=== PATIENT | female | born 1960 | race Caucasian/White ===

== ENCOUNTER → 2017-11-02 10:47 | Outpatient (POV) | payer MEDICARE, SELFPAY | PROVIDERS: Family Provider Nurse Practitioner; PCP Family Medicine; Visit Provider Internal Medicine | DX: Z00.00 Encounter for general adult medical examination without abnormal findings (principal) ==

== ENCOUNTER → 2017-11-12 11:48 | Outpatient (CLI) | payer MEDICARE, SELFPAY ==
[2017-11-12 12:48] VITALS: PULSE 63; PULSE 64
[2017-11-12 13:21] VITALS: BP 128/72; PULSE 68; RESP 12; O2SAT 97
[2017-11-12 13:23] VITALS: BP 137/71; PULSE 111; RESP 18; O2SAT 90
--- NOTE | 2017-11-12 13:30 | CT_ITS ---
EXAM: CT LUNG LOW DOSE WO CONTRAST COMPARISON: No previous CT studies. This CXR 2 view January 2014. HISTORY: 1 pack per day for 37 years = 37packYear quit smoking 5 years ago nicotine dependence ========= TECHNIQUE: The exam was performed on a GE Light Speed [address] scanner using 3.0 mGy CTDI. A low dose helical CT CHEST was performed on a multi-detector scanner. All CT scans at this facility use one or more dose reduction techniques, viz.: automated exposure control; ma/kV adjustment per patient size (including targeted exams where dose is matched to indication; i.e. head) or iterative reconstruction technique. The LDCT was performed in a facility that meets the criteria for the screening program. Data regarding this exam was submitted to ACR which is an approved registry. The order for this exam indicates that it came as a result of a lung cancer screening counseling shard decision-making visit that included all the elements required of such a visit including smoking cessation. The radiologist interpreting this exam meets the CMS criteria for the LDCT lung cancer screening program. The exam is reported using the Lung-RADS classification scale and reported to the ACR registry. NOTE: This study was performed for specific purposes of lung cancer screening & is not an alternative to diagnostic chest CT. RADIATION DOSE: CTDI vol(CT dose Index-volume) = 2.9mGy DLP (Dose Length Product) = 111.9 mGy-cm FINDINGS: No suspicious lung masses or nodules. Indeterminate/Non-actionable Nodules(Category2): There are some scattered small nonspecific nodular density which can be followed. It Right lung. Moderately dense 4.3 mm nodular density RUL.axial slice 43 . Small wispy area of likely fibrotic scarring anterior RML axial slice 52. A tiny 2.5 mm density periphery of the right lung axial slice 48 Left lung. Tiny 3 mm barely evident nodule periphery of left midlung onq axial slice 59. L UL Small 3.2 mm nodular density the posterior RLL axial slice 64 Benign nodules(Category1). Dense calcified granuloma at right lung base just over 6 mm size. Axial slice 63 LUNG PARENCHYMA Emphysema: Mild centrilobular emphysematous changes. With Hyperexpansion. Airways disease: Satisfactory. Generous caliber central airways . Scattered areas of minimal wispy fibrotic changes at the periphery the lung for example towards right CP angle and medial left lung base just above diaphragm and posterior sulcus. Also anterior RUL just above minor fissure . OTHER ANATOMIC REGIONS2. No pleural mass or density Mediastinum. No significant mediastinal adenopathy. Calcified hilar nodes on right. Reflect over elements disease. Heart is normal in size with minimal calcification of coronary arteries. Uppermost abdomen. No unremarkable findings. T-spine intact minor degenerative change. . IMPRESSION: 1. Hyperexpansion withEmphysematous changes. 2. No suspicious lung mass or nodule 3. Lung RADS Category: 2 Small indeterminate more likely benign nodules. Bilaterally. Follow-up in one year recommended . RECOMMENDATIONS: 12 monthd LDCT follow-up
== END ==
PROVIDERS: Family Provider Nurse Practitioner; PCP Family Medicine; Visit Provider Nurse Practitioner Family
DX: Z87.891 Personal history of nicotine dependence (principal); Z12.2 Encounter for screening for malignant neoplasm of respiratory organs; R06.02 Shortness of breath
CPT/HCPCS: 94060; 94618; 94640; 94726; 94729

== ENCOUNTER → 2017-12-21 10:28 | Outpatient (POV) | payer MEDICARE, SELFPAY | PROVIDERS: Family Provider Nurse Practitioner; PCP Family Medicine; Visit Provider Internal Medicine | DX: Z00.00 Encounter for general adult medical examination without abnormal findings (principal) ==

== ENCOUNTER → 2018-04-19 09:30 | Outpatient (POV) | payer MEDICARE, SELFPAY | PROVIDERS: Visit Provider Internal Medicine | DX: Z00.00 Encounter for general adult medical examination without abnormal findings (principal) ==

== ENCOUNTER → 2018-10-11 13:08 | Outpatient (POV) | payer MEDICARE, SELFPAY | PROVIDERS: Visit Provider Internal Medicine | DX: Z00.00 Encounter for general adult medical examination without abnormal findings (principal) ==

== ENCOUNTER → 2018-11-16 07:41 | Outpatient (CLI) | payer MEDICARE, SELFPAY ==
--- NOTE | 2018-11-16 07:55 | CT_ITS ---
CT lung screening EXAM: CT LUNG LOW DOSE WO CONTRAST HISTORY: 37 pack-year smoking history, asymptomatic for lung cancer ITS.REASON: H/O NICOTINE DEPENDENCE ORDERING PHYSICIAN: Cezar Cavazos MD PATIENT AGE: 58 years COMPARISON: 11/12/2017 TECHNIQUE: The exam was performed on a GE Light Speed [address] scanner using 2.90 mGy CTDI. A low dose helical CT CHEST was performed on a multi-detector scanner. All CT scans at the facility use one or more dose reduction, viz: automated exposure control, ma/kV adjustment per patient size (including targeted exams where dose is matched to indication, i.e. head), or iterative reconstruction technique. The LDCT was performed in a facility that meets the criteria for the screening program. Data regarding this exam was submitted to ACR which is an approved registry. The order for this exam indicates that it came as a result of a lung cancer screening counseling shard decision-making visit that included all the elements required of such a visit including smoking cessation. The radiologist interpreting this exam meets the CMS criteria for the LDCT lung cancer screening program. The exam is reported using the Lung-RADS classification scale and reported to the ACR registry. NOTE: This study was performed for the specific purposes of lung cancer screening and is not an alternative to diagnostic chest CT. RADIATION DOSE: CTDI vol(CT dose Index-volume) = 2.90mG DLP (Dose Length Product) = 96.38 mGcm FINDINGS: There are multiple new noncalcified pulmonary nodules including a 5 mm nodule in the right upper lobe medially, 5 mm nodule right upper lobe medially, 7 mm nodule right middle lobe, 4 mm nodule right lower lobe laterally, 3 mm nodule left lower lobe, 4 mm nodule left lower lobe. Previously noted nodule in the right upper lobe is slightly smaller. There are centrilobular emphysematous changes. There are coronary artery calcifications. IMPRESSION: 1. Lung RADS Category: 4 a, suspicious with multiple new pulmonary nodules 2. Other findings: Coronary artery calcifications, centrilobular emphysema RECOMMENDATIONS: There are multiple new small pulmonary nodules which could be inflammatory/infectious or neoplastic. Does the patient have a history of primary neoplasm? If search for primary neoplasm is noncontributory, then, recommend [address] of the chest without and with contrast
== END ==
PROVIDERS: PCP Nurse Practitioner; Visit Provider Internal Medicine
DX: Z12.2 Encounter for screening for malignant neoplasm of respiratory organs (principal); Z87.891 Personal history of nicotine dependence

== ENCOUNTER → 2019-02-02 10:29 | Outpatient (CLI) | payer MEDICARE, SELFPAY ==
[2019-02-02 10:52] LABS: Basophils # 0.1 K/mm3 (0-0.2); Basophils % 0.7 % (0.1-2.0); Eosinophils # 0.4 K/mm3 (0.0-0.4); Hematocrit 40.9 % (37.0-47.0); Hemoglobin 13.5 g/dL (12.2-16.2); Lymphocytes # 1.5 K/mm3 (0.7-4.5); Lymphocytes % 17.7 % (10-50); Mean Corpuscular Hemoglobin 30.1 pg (27.0-31.2); Mean Corpuscular Volume 91.3 fl (81-99); Mean Platelet Volume 7.9 fl (7.4-10.4); Monocytes # 0.4 K/mm3 (0.1-1.0); Monocytes % 4.9 % (1.7-9.3); Neutrophils # 5.9 K/mm3 (1.8-7.8); Neutrophils % 71.8 % (37.0-80.0); Platelet Count 232 K/mm3 (142-424); Red Blood Count 4.48 M/mm3 (4.20-5.40); Red Cell Distribution Width 13.7 % (11.5-17.5); White Blood Count 8.2 K/mm3 (4.8-10.8)
[2019-02-02 11:57] LABS: Alanine Aminotransferase 18 U/L (12-78); Albumin Level 3.4 gm/dL (3.4-5.0); Albumin/Globulin Ratio 1.2 (1.1-1.8); Alkaline Phosphatase 84 U/L (46-116); Anion Gap 13.6 mEq/L (5-15); Aspartate Amino Transferase 9 U/L (15-37); Bilirubin,Total 0.4 mg/dL (0.2-1.0); Blood Urea Nitrogen 9 mg/dL (7-18); Calcium 8.7 mg/dL (8.5-10.1); Carbon Dioxide 27 mmol/L (21.0-32.0); Chloride 104 mmol/L (98-107); Creatinine,Serum 0.77 mg/dL (0.55-1.02); Estimated Glomerular Filt Rate 76 ml/min (>60); GFR (African American) 92 ML/MIN (>60); Globulin 2.9 gm/dl (1.3-3.2); Glucose 131 mg/dL (74-106); Potassium 3.6 mmoL/L (3.5-5.1); Sodium 141 mmol/L (136-145); Total Protein,Serum 6.3 gm/dL (6.4-8.2)
== END ==
PROVIDERS: Visit Provider Surgery
DX: K52.9 Noninfective gastroenteritis and colitis, unspecified (principal)
CPT/HCPCS: 36415; 80053; 85025

== ENCOUNTER → 2019-02-03 11:48 | Outpatient (CLI) | payer MEDICARE, SELFPAY ==
[2019-02-03 11:52] LABS: Adenovirus F 40/41, stool Not Detected (NotDetected); Astrovirus Not Detected (NotDetected); Campylobacter Not Detected (NotDetected); Cryptosporidium Not Detected (NotDetected); Cyclospora Cayetanesis Not Detected (NotDetected); Entamoeba histolytica Not Detected (NotDetected); Enteroaggregative E coli Not Detected (NotDetected); Enteropathogenic E coli Not Detected (NotDetected); Enterotoxigenic E coli Not Detected (NotDetected); Giardia lamblia Not Detected (NotDetected); Norovirus Not Detected (NotDetected); Plesimonas Shigalloides, PCR Not Detected (NotDetected); Rotavirus A Not Detected (NotDetected); Salmonella, PCR Not Detected (NotDetected); Sapovirus Not Detected (NotDetected); Shiga-like toxin E coli Not Detected (NotDetected); Shigella Enterovasive E coli Not Detected (NotDetected); Vibrio Cholerae Not Detected (NotDetected); Vibrio, PCR Not Detected (NotDetected); Yersinia Entercolitica, PCR Not Detected (NotDetected)
[2019-02-03 17:42] LABS: Clostridium Difficile A/B, PCR Detected (NotDetected)
== END ==
PROVIDERS: Visit Provider Surgery
DX: A04.72 Enterocolitis due to Clostridium difficile, not specified as recurrent
CPT/HCPCS: 87506

== ENCOUNTER → 2019-02-10 14:37 | Outpatient (CLI) | payer MEDICARE, SELFPAY ==
--- NOTE | 2019-02-10 14:41 | CT_ITS ---
PROCEDURE: CT CHEST WO CON CLINICAL INDICATION: MULTIPLE PULOMNARY NODULES Follow-up abnormal screening exam COMPARISON: LUNGSCREEN CT lung screening from 11/16/2018 TECHNIQUE: Axial images obtained with sagittal and coronal reformats. All CT scans at the facility use one or more dose reduction, viz: automated exposure control, ma/kV adjustment per patient size (including targeted exams where dose is matched to indication, i.e. head), or iterative reconstruction technique. FINDINGS: There is minimal thickening of the pericardium measuring up to 7 mm in thickness anteriorly. Mild coronary artery calcification noted. COPD/emphysema with pulmonary fibrotic changes. No mediastinal or hilar mass or adenopathy. There is a small cluster of nodules in the right middle lobe. There are at least 4 nodules in this region the largest of which measures 6 mm. These are unchanged.. There is a 4 mm noncalcified nodule in the left lower lobe image number 60 unchanged. 3 mm nodule left lower lobe image number 55 unchanged. No new suspicious nodules are evident. IMPRESSION: Overall stable CT appearance of the chest with multiple pulmonary nodules unchanged. No new nodules evident. Suggest [address] follow-up to confirm 1 year stability. COPD, coronary artery disease Dictated by: Hever Abad MD 02/11/2019 06:50 Electronically signed by Hever Abad MD in [place] 02/15/2019 08:36
== END ==
PROVIDERS: PCP Nurse Practitioner; Visit Provider Internal Medicine
DX: R91.8 Other nonspecific abnormal finding of lung field (principal)
CPT/HCPCS: 71250

== ENCOUNTER → 2019-02-19 10:30 | Outpatient (CLI) | payer MEDICARE, SELFPAY ==
[2019-02-20 12:16] LABS: Adenovirus F 40/41, stool Not Detected (NotDetected); Astrovirus Not Detected (NotDetected); Campylobacter Not Detected (NotDetected); Clostridium Difficile A/B, PCR Not Detected (NotDetected); Cryptosporidium Not Detected (NotDetected); Cyclospora Cayetanesis Not Detected (NotDetected); Entamoeba histolytica Not Detected (NotDetected); Enteroaggregative E coli Not Detected (NotDetected); Enteropathogenic E coli Not Detected (NotDetected); Enterotoxigenic E coli Not Detected (NotDetected); Giardia lamblia Not Detected (NotDetected); Norovirus Not Detected (NotDetected); Plesimonas Shigalloides, PCR Not Detected (NotDetected); Rotavirus A Not Detected (NotDetected); Salmonella, PCR Not Detected (NotDetected); Sapovirus Not Detected (NotDetected); Shiga-like toxin E coli Not Detected (NotDetected); Shigella Enterovasive E coli Not Detected (NotDetected); Vibrio Cholerae Not Detected (NotDetected); Vibrio, PCR Not Detected (NotDetected); Yersinia Entercolitica, PCR Not Detected (NotDetected)
== END ==
PROVIDERS: Visit Provider Surgery
DX: A04.72 Enterocolitis due to Clostridium difficile, not specified as recurrent (principal); R19.7 Diarrhea, unspecified
CPT/HCPCS: 87506

== ENCOUNTER → 2019-02-28 10:53 | Outpatient (POV) | payer MEDICARE, SELFPAY | PROVIDERS: Visit Provider Dermatology | DX: Z00.00 Encounter for general adult medical examination without abnormal findings (principal) ==

== ENCOUNTER → 2019-03-28 10:41 | Outpatient (CLI) | payer MEDICARE, SELFPAY ==
[2019-03-28 10:44] LABS: Adenovirus F 40/41, stool Not Detected (NotDetected); Astrovirus Not Detected (NotDetected); Campylobacter Not Detected (NotDetected); Cryptosporidium Not Detected (NotDetected); Cyclospora Cayetanesis Not Detected (NotDetected); Entamoeba histolytica Not Detected (NotDetected); Enteroaggregative E coli Not Detected (NotDetected); Enteropathogenic E coli Not Detected (NotDetected); Enterotoxigenic E coli Not Detected (NotDetected); Giardia lamblia Not Detected (NotDetected); Norovirus Not Detected (NotDetected); Plesimonas Shigalloides, PCR Not Detected (NotDetected); Rotavirus A Not Detected (NotDetected); Salmonella, PCR Not Detected (NotDetected); Sapovirus Not Detected (NotDetected); Shiga-like toxin E coli Not Detected (NotDetected); Shigella Enterovasive E coli Not Detected (NotDetected); Vibrio Cholerae Not Detected (NotDetected); Vibrio, PCR Not Detected (NotDetected); Yersinia Entercolitica, PCR Not Detected (NotDetected)
[2019-03-28 13:05] LABS: Clostridium Difficile A/B, PCR Detected (NotDetected)
== END ==
PROVIDERS: Visit Provider Surgery
DX: A04.72 Enterocolitis due to Clostridium difficile, not specified as recurrent (principal)
CPT/HCPCS: 87506

== ENCOUNTER → 2019-04-11 14:18 | Outpatient (CLI) | payer MEDICARE, SELFPAY ==
[2019-04-11 14:22] LABS: Adenovirus F 40/41, stool Not Detected (NotDetected); Astrovirus Not Detected (NotDetected); Campylobacter Not Detected (NotDetected); Clostridium Difficile A/B, PCR Not Detected (NotDetected); Cryptosporidium Not Detected (NotDetected); Cyclospora Cayetanesis Not Detected (NotDetected); Entamoeba histolytica Not Detected (NotDetected); Enteroaggregative E coli Not Detected (NotDetected); Enteropathogenic E coli Not Detected (NotDetected); Enterotoxigenic E coli Not Detected (NotDetected); Giardia lamblia Not Detected (NotDetected); Norovirus Not Detected (NotDetected); Plesimonas Shigalloides, PCR Not Detected (NotDetected); Rotavirus A Not Detected (NotDetected); Salmonella, PCR Not Detected (NotDetected); Sapovirus Not Detected (NotDetected); Shiga-like toxin E coli Not Detected (NotDetected); Shigella Enterovasive E coli Not Detected (NotDetected); Vibrio Cholerae Not Detected (NotDetected); Vibrio, PCR Not Detected (NotDetected); Yersinia Entercolitica, PCR Not Detected (NotDetected)
== END ==
PROVIDERS: Visit Provider Surgery
DX: A04.72 Enterocolitis due to Clostridium difficile, not specified as recurrent (principal)
CPT/HCPCS: 87506

== ENCOUNTER → 2019-04-18 12:19 | Outpatient (CLI) | payer MEDICARE, SELFPAY ==
[2019-04-19 12:19] LABS: Adenovirus F 40/41, stool Not Detected (NotDetected); Astrovirus Not Detected (NotDetected); Campylobacter Not Detected (NotDetected); Cryptosporidium Not Detected (NotDetected); Cyclospora Cayetanesis Not Detected (NotDetected); Entamoeba histolytica Not Detected (NotDetected); Enteroaggregative E coli Not Detected (NotDetected); Enteropathogenic E coli Not Detected (NotDetected); Enterotoxigenic E coli Not Detected (NotDetected); Giardia lamblia Not Detected (NotDetected); Norovirus Not Detected (NotDetected); Plesimonas Shigalloides, PCR Not Detected (NotDetected); Rotavirus A Not Detected (NotDetected); Salmonella, PCR Not Detected (NotDetected); Sapovirus Not Detected (NotDetected); Shiga-like toxin E coli Not Detected (NotDetected); Shigella Enterovasive E coli Not Detected (NotDetected); Vibrio Cholerae Not Detected (NotDetected); Vibrio, PCR Not Detected (NotDetected); Yersinia Entercolitica, PCR Not Detected (NotDetected)
[2019-04-19 22:32] LABS: Clostridium Difficile A/B, PCR Detected (NotDetected)
== END ==
PROVIDERS: Visit Provider Surgery
DX: A04.72 Enterocolitis due to Clostridium difficile, not specified as recurrent (principal)
CPT/HCPCS: 87506

== ENCOUNTER → 2019-04-19 12:57 | Outpatient (POV) | payer MEDICARE, SELFPAY | PROVIDERS: Visit Provider Surgery | DX: Z01.89 Encounter for other specified special examinations (principal) ==

== ENCOUNTER 2020-08-11 11:21 | Emergency (ER) | payer MEDICARE, SELFPAY ==
[2020-08-11 11:44] VITALS: RESP 22; TEMP 37.1; O2SAT 93; BMI 25.3
--- NOTE | 2020-08-11 12:17 | HMH.EDUTC ---
[facility] [place] Disposition Clinical Impression: COPD exacerbation Disposition: Home, Self-Care Condition on Discharge: Good Instructions: Chronic Obstructive Pulmonary Disease, DI for Chronic Obstructive Pulmonary Disease Additional Instructions: Drink plenty of fluids. Take tylenol or ibuprofen for pain or fever. Take the medications as directed. Follow up with your regular doctor. GO TO THE ER FOR ANY WORSENING SYMPTOMS Don't start the oral steroids until tomorrow, since you had the shot here today. The cough medication (promethazine dm) will make you drowsy, so don't drive or operate heavy machinery after taking it. Prescriptions: Promethazine/Dextromethorphan [Promethazine-Dm Syrup] 5 ml PO Q6HP PRN #240 syrup PRN Reason: Cough Transmission Status: Received by [facility] levoFLOXacin [Levaquin 500mg tab] 500 mg PO DAILY #7 tab Transmission Status: Received by [facility] methylPREDNISolone [Medrol] 4 mg PO DIRECTED 6 Days #21 tab.ds.pk Transmission Status: Received by [facility] Referrals: Alex Kauffman MD [Primary Care Provider] - Time of Disposition: 13:00 Medical Decision Making - Medical Records Medical records reviewed: No: I reviewed the patient's medical records. - Giovanni Inquiry Pt receiving controlled substance: No Vital Signs: 08/11/20 11:44 08/11/20 13:06 Temperature 98.7 F 98.7 F Temperature Source Oral Oral Pulse Rate 114 H Respiratory Rate 22 20 Blood Pressure 102/62 L 02 Sat by Pulse Oximetry 93 L Oxygen Delivery Method Room Air Room Air Orders (Tests/Meds): ED MEDICATIONS Discontinued Medications Generic Name Dose Route Start Last Admin Trade Name Freq PRN Reason Stop Dose Admin Ceftriaxone Sodium 1 gm 08/11/20 12:24 08/11/20 12:37 Ceftriaxone 1gm Vial IM 08/11/20 12:25 1 gm ONCE ONE Administration Protocol Lidocaine HCl 0 ml 08/11/20 12:24 08/11/20 12:37 Lidocaine 1% 5ml Pf Vial IM 08/11/20 12:25 5 ml ONCE ONE Administration Methylprednisolone Sodium Succinate 125 mg 08/11/20 12:24 08/11/20 12:37 Methylprednisolone Sod Succ 125mg Vial IM 08/11/20 12:25 125 mg ONCE ONE Administration [facility] [place] HPI - General Stated complaint: SOA achey lung pain Time Seen by Provider: 08/11/20 12:17 Mode of Arrival: Ambulatory Source of Information: Patient Limitations: No Limitations HEENT Symptoms (Recalled from RN notes): No Resp Symptoms (Recalled from RN notes): Yes Skin Symptoms (Recalled from RN notes): No MS Symptoms (Recalled from RN notes): Yes Functional Status (Recalled from RN notes): na - History of Present Illness Provider Complaint: She states that for the past 2 days she has had worsening chest congestion. She has a history of copd. - Related Data Previous Rx's Medication Instructions Recorded vancomycin 250 mg capsule 250 mg PO QID 10 Days #40 cap 03/28/19 estradiol 1 mg tablet 1 mg PO DAILY #30 tab 04/23/20 medroxyprogesterone 2.5 mg tablet 2.5 mg PO DAILY #90 tab 04/23/20 Promethazine/Dextromethorphan 5 ml PO Q6HP PRN #240 syrup 08/11/20 [Promethazine-Dm Syrup] levoFLOXacin [Levaquin 500mg 500 mg PO DAILY #7 tab 08/11/20 tab] methylPREDNISolone [Medrol] 4 mg PO DIRECTED 6 Days #21 08/11/20 tab.ds.pk Allergies Allergy/AdvReac Type Severity Reaction Status Date / Time No Known Allergies Allergy Verified 05/13/17 11:40 - Worker's Comp Is this a Worker's Comp case?: No [facility] History - Hepatitis A Screen Drug use history?: No High risk sexual behaviors?: No History of sexually transmitted infection?: No Currently employed?: No Childcare worker?: No Do you have indoor plumbing?: Yes Do you have electricity?: Yes Attestation statement:: This patient has been screened for Hepatitis A risk factors. I have reviewed the patient's past medical history: Yes ROS Obtained: Yes All systems reviewed & no additional complaints - Constit
[2020-08-11 13:06] VITALS: BP 102/62; PULSE 114; RESP 20; TEMP 37.1; O2SAT 94
== END 2020-08-11 13:08 | disposition home or self-care (01) ==
PROVIDERS: Emergency Provider Nurse Practitioner Family; PCP Family Medicine
DX: J44.1 Chronic obstructive pulmonary disease with (acute) exacerbation (principal); Z20.822 Contact with and (suspected) exposure to COVID-19
CPT/HCPCS: G0463; 99202; U0003

== ENCOUNTER → 2020-10-17 10:16 | Outpatient (CLI) | payer MEDICARE, SELFPAY ==
--- NOTE | 2020-10-17 10:16 | MM_ITS ---
PROCEDURE: MM DIG SCREENING MAMM BI W/CAD Digital Breast Tomosynthesis Included CLINICAL INDICATION: Routine Screening Mammogram COMPARISON: MG DIGMAMMS MAMMOGRAM SCREEN-CHAIRMAN & CHIEF EXECUTIVE OFFICER N/C from 05/09/2004 MG DIGMAMMS MAMMOGRAM SCREEN-CHAIRMAN & CHIEF EXECUTIVE OFFICER N/C from 09/29/2006 MG DMSB DIGITAL MAMM-SCREEN BILATERAL from 03/19/2010 TECHNIQUE: Standard CC and MLO images and 3D Tomosynthesis was obtained. R2 CAD reviewed. FINDINGS: Breast parenchyma is heterogeneously dense which may lower the sensitivity of mammography. No new dominant mass. No suspicious type microcalcifications or indirect evidence of malignancy. A few benign-appearing calcifications noted bilaterally. IMPRESSION: Benign bilateral digital screening mammograms. BI-RAD Category: 2 Benign Finding FOLLOW-UP: 1 YR 1 Year Follow-up (A letter has been sent to the patient regarding results of the study.) Dictated by: Cezar Barnes MD 10/18/2020 08:32 Cezar Barnes MD in [place] 10/18/2020 08:32
--- NOTE | 2020-10-17 10:16 | US_ITS ---
PROCEDURE: US TRANSVAGINAL CLINICAL INDICATION: Heavy Bleeding/Post menopausal COMPARISON: No exams were available for comparison FINDINGS: UTERUS: x 3cmx 3cm with a combined endometrial thickness of 6mm LEFT OVARY: [id number] with a volume of 1.2ml. RIGHT OVARY: 2cmx [id number] with a volume of 0.8ml. Several small cervical nabothian cysts, the largest measuring about 7 mm. Mildly thickened endometrium of 7 mm may represent hyperplasia or polyps but tumor cannot be entirely excluded. Small 1 cm anterior uterine fibroid. No free fluid in the posterior cul-de-sac or pelvis. IMPRESSION: Mildly thickened endometrium of 7 mm may represent hyperplasia or polyp a tumor cannot be entirely excluded. Several small cervical nabothian cyst Small 1 cm anterior uterine fibroid. Dictated by: Cezar Barnes MD 10/17/2020 13:27 Cezar Barnes MD in [place] 10/17/2020 13:27
== END ==
PROVIDERS: PCP Family Medicine; Visit Provider Nurse Practitioner Obstetrics & Gynecology
DX: Z12.31 Encounter for screening mammogram for malignant neoplasm of breast; N95.0 Postmenopausal bleeding
CPT/HCPCS: 76830; 77063; 77067

== ENCOUNTER 2023-10-07 15:06 | Outpatient (CLI) | payer MEDICARE, SELFPAY ==
--- NOTE | 2023-10-07 15:07 | CT_ITS ---
FINAL REPORT TECHNIQUE: Thin section axial CT images with coronal and sagittal reformats were performed through the neck. This study was performed with techniques to keep radiation doses as low as reasonably achievable (ALARA). Individualized dose reduction techniques using automated exposure control or adjustment of mA and/or kV according to the patient's size were employed. CLINICAL HISTORY: lump on neck--left side marked with a bb COMPARISON: None FINDINGS: CT NECK SOFT TISSUES WITHOUT CONTRAST: A marker was placed in the left mid neck where the patient states a palpable mass is present. No evidence of mass, adenopathy, or fluid collection is noted. The marker overlies the left submandibular gland. The nasopharynx, oropharynx, and larynx appear unremarkable. Degenerative change is present in the mid and lower cervical spine. In the lung apices, moderate changes of emphysema are present along with mild scarring. IMPRESSION: Marker overlies the left submandibular gland, without evidence of mass, adenopathy, or fluid collection. Degenerative change is present in the mid and lower cervical spine. Reviewed, Interpreted and Dictated by Hong Pace III, MD Transcribed by Ines Rios Authenticated and [facility]
== END 2023-10-07 23:59 | disposition home or self-care (01) ==
LOC: RAD 15:06
PROVIDERS: PCP Nurse Practitioner; Visit Provider Nurse Practitioner
DX: R22.1 Localized swelling, mass and lump, neck (principal)
CPT/HCPCS: 70490

== ENCOUNTER 2023-12-13 12:39 | Outpatient (CLI) | payer MEDICARE, SELFPAY ==
--- NOTE | 2023-12-13 12:41 | MM_ITS ---
PROCEDURE INFORMATION: Exam: MG Bilateral Screening 3D Mammography Exam date and time: 12/13/2023 12:46 PM Age: 63 years old Clinical indication: Screening examination TECHNIQUE: Imaging protocol: Bilateral Screening tomosynthesis and 2D mammography including computer-aided detection (CAD) when performed. COMPARISON: 1. MG MM DIG SCREENING MAMM BI W/CAD 10/17/2020 10:50 AM 2. MG DMSB DIGITAL MAMM-SCREEN BILATERAL 03/19/2010 3:05 PM FINDINGS: MAMMOGRAPHY: Breast composition: The breasts are heterogeneously dense, which may obscure small masses. Mass: None. Architectural distortion: None. Calcifications: No suspicious calcifications. Asymmetric density: None. Skin thickening: None. Axillary adenopathy: None. IMPRESSION: No mammographic evidence of malignancy. Annual screening is recommended unless otherwise clinically indicated. ASSESSMENT: BI-RADS Category 1: Negative
== END 2023-12-13 23:59 | disposition home or self-care (01) ==
LOC: RAD 12:39
PROVIDERS: PCP Nurse Practitioner; Visit Provider Nurse Practitioner
DX: Z12.31 Encounter for screening mammogram for malignant neoplasm of breast (principal)
CPT/HCPCS: 77063; 77067

== ENCOUNTER 2024-05-30 08:25 | Day surgery (SDC) | payer MEDICARE, SELFPAY ==
[2024-05-26 10:41] VITALS: BMI 22.0
[2024-05-30] MEDS: CYCLOPENTOLATE 2% OPHTH SOLN 2ML BOTTLE OP ×3 (09:05→09:15)
[2024-05-30] MEDS: PHENYLEPHRINE 2.5% OPHTH SOLN 2ML OP ×3 (09:05→09:15)
[2024-05-30] MEDS: TETRACAINE 0.5% OPTH SOL 15ML OP ×3 (09:05→09:15)
[2024-05-30 09:11] VITALS: BP 148/57; PULSE 73; RESP 16; TEMP 36.4; O2SAT 97
[2024-05-30] MEDS: SODIUM CHLORIDE 0.9% 10ML FLUSH SYRINGE 10 ML IV (09:19)
[2024-05-30 10:22] VITALS: BP 147/67; PULSE 67; RESP 18; O2SAT 98
[2024-05-30] MEDS: LIDOCAINE 1% PF 2ML AMPULE 2 ML IJ (10:22)
[2024-05-30] MEDS: TIMOLOL 0.5% OPTH SOLN 5ML OP (10:22)
[2024-05-30] MEDS: TOBRAMYCIN/DEX OPTH SUSP 2.5ML OP (10:22)
[2024-05-30] MEDS: MIDAZOLAM 2MG/2ML VIAL 1 MG IV (10:22)
[2024-05-30 10:27] VITALS: BP 131/61; PULSE 68; RESP 18; O2SAT 98
[2024-05-30 10:32] VITALS: BP 125/59; PULSE 68; RESP 18; O2SAT 97
[2024-05-30 10:37] VITALS: BP 139/61; PULSE 68; RESP 18; O2SAT 97
[2024-05-30 10:40] VITALS: BP 135/70; PULSE 70; RESP 18; TEMP 36.5; O2SAT 93
--- NOTE | 2024-05-30 11:50 | P.PCN_ITS ---
[facility] Procedure Note Date: 05/30/24 Time: 11:50 Procedure Note:: Preoperative Diagnosis: Cataract combined NS Cortical Complex [Left] Eye Postop diagnosis: same Operation: Microscopic phacoemulsification with intraocular lens implant [Left] Eye Specimen: None Blood Loss: None The patient was examined in the office with a complaint of poor vision in the [left] eye. The patient reports that this interferes with ADLs such as reading, watching TV and/or driving or the vision is like looking through a foggy haze and is very troubling. The patient was examined and found to have a visually significant cataract with best corrected vision of [20/400] by refraction and/or glare testing. Treatment options, risks and benefits were explained and the patient elected to have cataract surgery in an attempt to improve their vision. The patient had the eye anesthetized with topical tetracaine, the eye ways prepped and draped in the usual fashion for cataract surgery. A paracentesis and a temporal keratotomy were made. 0.2cc of 1% lidocaine PF was placed into the anterior chamber. And aqueous/viscoelastic exchange was done and a 360 degree capsulorexis was performed. Through hydrodissection and delineation with BSS on a cannula was done. The lens nucleus was phecoemulsified with CDE of [6.94]. Residual cortical material was removed using automated I&A The capsular bag was deepened with viscoelastica and a PCIOL was placed in the capsular bag with good centration and stability. Residual viscoelastic was removed using automated I&A. The keratotomy incision was hydrated with BSS on a cannula. The wound were checked and found to be water tight. IOP was checked digitally and adjusted as needed so as not to be too high. 1 drop of timolol 0.5%, ofloxacin, prednisolone acetate and ketorolac was instilled and eye shield taped over the eye. The patient was taken to recovery in good condition and will be seen postoperatively.
== END 2024-05-30 10:46 | disposition home or self-care (01) ==
PROVIDERS: PCP Nurse Practitioner; Visit Provider Ophthalmology
PROC: (CPT 66984; principal; 2024-05-30 12:00)
DX: H25.012 Cortical age-related cataract, left eye (principal)
CPT/HCPCS: 66984; J2250; V2632

== ENCOUNTER 2024-12-03 01:24 | Observation (INO) | payer MEDICARE, SELFPAY ==
--- NOTE | 2024-12-02 01:30 | ECG_ITS ---
APPROVED REPORT Exam: Resting ECG HR:102 bpm ECG Measurements Heart Rate 102 AXES VT 156 P 92 QRSd 85 QRS 90 QT 317 T 89 QTc 376 Conclusion SINUS TACHYCARDIA POSSIBLE RIGHT ATRIAL ENLARGEMENT [0.25mV P-WAVE] MINIMAL ST DEPRESSION [0.025+ mV ST DEPRESSION] No STEMI Electronically signed by : YULISSA SIBLEY, 12/03/2024 07:05:03
[2024-12-03] VITALS (18 sets, daily range): BP systolic 100–155; BP diastolic 57–84; PULSE 80–112; RESP 13–24; TEMP 36.4–36.9; O2SAT 87–99; BMI 22.3; BMI 19.2
--- NOTE | 2024-12-03 01:26 | XR_ITS ---
PROCEDURE INFORMATION: Exam: XR Chest Exam date and time: 12/03/2024 2:26 AM Age: 64 years old Clinical indication: Shortness of breath; Additional info: SOA copd TECHNIQUE: Imaging protocol: Radiologic exam of the chest. Views: 1 view. COMPARISON: CT ANGIO CHEST PE PROTOCOL 12/03/2024 2:12 AM FINDINGS: Lungs: The lungs are hyperinflated. No focal consolidation. Pleural spaces: No pneumothorax or pleural effusion. Heart/Mediastinum: The cardiomediastinal silhouette has normal size and contour. Bones/joints: No displaced fracture. Intraperitoneal space: The visualized abdomen is unremarkable. IMPRESSION: 1. No acute cardiopulmonary disease. 2. Other findings as above.
--- NOTE | 2024-12-03 01:26 | CT_ITS ---
PROCEDURE INFORMATION: Exam: CTA Chest With Contrast Exam date and time: 12/03/2024 2:12 AM Age: 64 years old Clinical indication: Shortness of breath and tachypnea; Additional info: ERNESTINE padron TECHNIQUE: Imaging protocol: Computed tomographic angiography of the chest with contrast. Exam focused on the arteries. 3D rendering (Not supervised by radiologist): MIP and/or 3D reconstructed images were created by the technologist. Radiation optimization: All CT scans at this facility use at least one of these dose optimization techniques: automated exposure control; mA and/or kV adjustment per patient size (includes targeted exams where dose is matched to clinical indication); or iterative reconstruction. Contrast material: ISOVUE; Contrast volume: 75 ml; Contrast route: INTRAVENOUS (IV); COMPARISON: CT ANGIO CHEST PE PROTOCOL 12/03/2024 2:12 AM FINDINGS: Pulmonary arteries: No pulmonary emboli. Aorta: No aortic aneurysm. No aortic dissection. Thyroid: The thyroid gland is normal. Lungs: Centrilobular emphysema. Multiple pulmonary nodules, largest measuring 6 mm in the right middle lobe. Pulmonary granulomas. Pleural spaces: No pneumothorax. No pleural effusion. Heart: No cardiomegaly. No pericardial effusion. Lymph nodes: No enlarged lymph nodes. Liver: The liver appears enlarged. Spleen: Splenic granulomas. Kidneys: 1.2 cm hypodensity within the superior pole the right kidney, measures greater than expected for a simple cyst. Bones/joints: Multilevel degenerative type changes of the spine. No acute osseous abnormality. Soft tissues: Unremarkable. IMPRESSION: 1. No pulmonary embolism. 2. [id number] emphysema. 3. Multiple pulmonary nodules, largest measuring 6 mm. As per Fleischner Society guidelines for follow-up and management of multiple pulmonary nodules between 6 and 8 mm:For patients at low risk (minimal or absent history of smoking and of other known risk factors), recommend follow-up chest CT at 3-6 months, then consider followup at 18 - 24 months.For patients at high risk (history of smoking or of other known risk factors), recommend initial follow-up chest CT at 3-6 months, then at 18-24 months. 4. Indeterminate 1.2 cm hypodensity superior pole the right kidney recommend further evaluation with nonemergent multiphase MRI for complete characterization. 5. Other findings as above. COMMENTS: 1. The presence of pulmonary emphysema on CT is an independent risk factor for lung cancer. In the absence of a history or active diagnosis of lung cancer, it is recommended that this patient with emphysema be evaluated for enrollment in a low dose CT lung cancer screening program. 2. Consistent with the [employer]'s Incidental Findings Committee white paper (J Am Jacqui Radiol 2018): Any incidental renal lesion less than 1 cm or classified as too small to characterize, or any incidental cystic renal lesion characterized as simple-appearing, is likely benign. No follow-up imaging is recommended for these lesions per consensus recommendations based on imaging criteria.
[2024-12-03 01:36] LABS: Hematocrit 46.4 % (37.0-47.0); Hemoglobin 15.3 g/dL (12.2-16.2); Immature Granulocytes % 0.2 %; Mean Corpuscular HGB Conc 33.0 g/dL (31.8-35.4); Mean Corpuscular Hemoglobin 29.1 pg (27.0-31.2); Mean Corpuscular Volume 88.4 fl (81-99); Nucleated Red Blood Cells % 0 %; Platelet Count 243 K/mm3 (142-424); Red Blood Count 5.25 M/mm3 (4.20-5.40); Red Cell Distribution Width-SD 41.6 fL; White Blood Count 9.3 K/mm3 (4.8-10.8)
[2024-12-03 01:41] LABS: Alanine Aminotransferase 21 U/L (12-78); Albumin Level 4.8 g/dl (3.5-5.0); Albumin/Globulin Ratio 1.8 (1.1-1.8); Alkaline Phosphatase 104 U/L (38-126); Anion Gap 10.9 mEq/L (5-15); Aspartate Amino Transferase 37 U/L (14-36); Bilirubin,Total 0.6 mg/dl (0.2-1.3); Blood Urea Nitrogen 7 mg/dl (7-17); Calcium 10.1 mg/dl (8.4-10.2); Carbon Dioxide 29 mmol/L (22.0-30.0); Chloride 103 mmol/L (98-107); Creatinine Clearance Estimated 52 mL/min (50-200); Creatinine,Serum 0.70 mg/dl (0.52-1.04); Estimated Glomerular Filt Rate 84 ml/min (>60); GFR (African American) 101 ML/MIN (>60); Globulin 2.7 g/dL (1.3-3.2); Glucose 123 mg/dl (74-100); Potassium 3.9 mmoL/L (3.5-5.1); Sodium 139 mmol/L (136-145); Total Protein,Serum 7.5 g/dl (6.3-8.2)
[2024-12-03 01:43] LABS: INR 0.99 (0.9-1.1); Prothrombin Time 11.0 seconds (10.1-12.5)
[2024-12-03] MEDS: ASPIRIN 81MG CHEWABLE TABLET 324 MG PO (01:43)
[2024-12-03] MEDS: METHYLPREDNISOLONE SOD SUCC 125MG VIAL 125 MG IV (01:45)
--- NOTE | 2024-12-03 01:51 | ED_ITS ---
Discharge Plan Disposition Patient Disposition: Admitted Condition: Fair Prescriptions Prescriptions: No Action Stiolto Respimat 2.5-2.5 mcg/actuation mist 2.5 inh INHALATION NEEDED PRN (Reason: sob) atorvastatin 10 mg tablet 10 mg PO DAILY levothyroxine 50 mcg tablet 50 mcg PO DAILY sertraline 25 mg tablet 25 mg PO DAILY ipratropium-albuterol 0.5 mg-3 mg(2.5 mg base)/3 mL solution for nebulization 3 ml INHALATION DAILY PRN (Reason: Shortness Of Breath Or Wheezing) Referrals Follow up/Referrals: Lizette Gallegos APRN [Primary Care Provider, Medical] - See instructions Clinical Impressions Clinical Impression: Acute respiratory failure with hypoxia and hypercarbia, COPD exacerbation Print Language Print Language: Greek Discharge ED Provider: Chastity Nava General Chief Complaint: Shortness of Breath/Dyspnea Stated Complaint: SOA Time Seen by Provider: 12/03/24 01:25 Mode of Arrival: Wheelchair Source of Information: Patient and Relative Description of Symptoms (Recalled from ER Triage Doc. by RN): Patient to ED with complaints of increased SOA in past 24 hours. Patient not been feeling well x1week, visited PCP 2 days ago, dx with bronchitis and prescribed abx which she states are not helping. Patient 88% upon assessment on room air, placed on 2L at this time. Inspiratory and expiratory wheezing noted on auscultation. History of Present Illness HPI narrative: 64-year-old female presents to the ER complaining of increasing shortness of breath. Patient states she has been feeling under the weather for many days, she visited her PCP 2 days ago for shortness of breath and was diagnosed with bronchitis and prescribed antibiotics (azithromycin). She states she has not been having a cough, denies any chest pain. Patient does not have nasal cannula support at home but arrived 88% on room air, placed on nasal cannula upon arrival. Patient has shortness of breath despite reporting using her rescue inhaler and nebulizer treatments at home. She states she has an allergy to corticosteroids stating she feels hot and gets red but denies any hives, difficulty breathing, vomiting, anaphylaxis, or angioedema. She is not taking the prednisone that was prescribed to her by her PCP. She states her PCP did not do a chest x-ray and patient has not had fever or other infectious symptoms. No abdominal complaints. No headache or dizziness. No other complaints or concerns. Related Data Home Medications ?Medication ?Instructions ?Recorded ?Confirmed tiotropium 2.5 mcg-olodaterol 2.5 2.5 inh inhalation A S NEEDED PRN 10/11/20 12/03/24 mcg/actuation mist for inhalation sob (Stiolto Respimat) atorvastatin 10 mg tablet 10 mg PO DAILY 09/22/2307/25 levothyroxine 50 mcg tablet 50 mcg PO DAILY 09/22/23 0 12/03/24 sertraline 25 mg tablet 25 mg PO DAILY 09/22/2307/25 ipratropium 0.5 mg-albuterol 3 mg 3 ml inhalation MARINA Y PRN 12/03/24 12/03/24 (2.5 mg base)/3 mL nebulization Shortness Of Breath Or Wheezing soln Allergies Allergy/AdvReac Type Severity Reaction Status Date / Time Corticosteroids AdvReac Intermediate MAKES Verified 05/30/24 09:10 (Glucocorticoids) PATIENT RED AND FEEL HOT. [facility] Disclaimer: The information contained in this section may have been updated after the patient was seen, as this information can be updated by other users. Medical History (Updated 12/03/24 @ 02:48 by Chastity Nava MD) GERD (gastroesophageal reflux disease) Hypothyroidism COPD (chronic obstructive pulmonary disease) Lump on neck Surgical History History of thyroid surgery Hx of section Family History Sister Cancer Brother Cancer Heart disease Mother Heart disease Diabetes Social History Smoking Status: Former smoker alcohol intake: never current occupational status: other Travel in the last 8 weeks?: None Have you lived/traveled outside US in past 30 days?: No Contact w/someone who lives/traveled outside US past 30 days?: No Exposure to someone with infectious disease in past 14 days?: No Do you have a fever (greater than 100.4 F or 38 C)?: No Have you tested positive for COVID-19?: No Exposed to someone with COVID-19 in past 14 days?: No Do you have a sore throat?: No Do you have a cough?: No Do you have any weakness?: No Do you have any diarrhea?: No Are you experiencing any unusual bleeding?: No Do you have any muscle aches/pain?: No Do you have any abdominal pain?: No Are you experiencing loss of taste or smell?: No Other Medical History Have you received the Pneumonia Vaccine: Yes ROS Obtained: Yes Systems reviewed as appropriate & no additional complaints except as documented Per HPI Physical Exam General General appearance: alert and in no apparent distress Head Head exam: atraumatic and normocephalic Eye Eye exam: Present PERRL and EOMI ENT ENT exam: Present mucous membranes moist Neck Neck exam: Present normal inspection and full ROM Chest Chest inspection: Present symmetric chest wall rise Respiratory Respiratory exam: Present respiratory distress (Tripoding, diminished throughout, 88% on room air on arrival), wheezes (Very faint wheezing throughout) and accessory muscle use; Absent stridor Cardiovascular Cardiovascular exam: Present normal rhythm and tachycardia Abdominal Exam Abdominal exam: Present soft; Absent distention or tenderness Extremities Exam Extremities exam: Present full ROM and normal capillary refill; Absent tenderness, edema, joint swelling or calf tenderness Neurological Exam Neurological exam: Present alert and oriented X3; Absent motor sensory deficit Psychiatric Psychiatric exam: Present normal affect and normal mood Skin Skin exam: Present warm and dry HEART Score HEART Score HEART Score assessment performed?: Yes History (anamnesis): Slightly suspicious ECG: Non-specific disturbance Age: >65 years Risk factors: 1-2 risk factors Troponin: </= normal limit HEART Score: 4 Critical Care Critical Care Time Critical Care Time: Yes Attestation: On 12/03/24, the high probability of a clinically significant, sudden or life threatening deterioration of the following system(s) (respiratory) required my full and direct attention, intervention and personal management. The time I documented below is in addition to time spent performing reported procedures but includes the following listed in this critical care notation. Total Time Total Critical Care Time: 35 Medical Decision Making Medical Records Medical records reviewed: Yes I reviewed the patient's medical records. Giovanni Inquiry Pt receiving controlled substance: No Vital Signs Vital Signs: 12/03/24 01:33 Temperature 98.2 F Temperature Source Oral Pulse Rate [Right] 108 H Respiratory Rate 17 Blood Pressure [Right Arm] 155/84 H Blood Pressure Mean [Right Arm] 107 Blood Pressure Source [Right Arm] Automatic Cuff Blood Pressure Position [Right Arm] Sitting 02 Sat by Pulse Oximetry 87 L Oxygen Delivery Method Room Air Lab Data Labs: Lab Results 12/03/24 01:23: WBC 9.3, RBC 5.25, Hgb 15.3, Hct 46.4, MCV 88.4, MCH 29.1, MCHC 33.0, RDW 12.9, Plt Count 243, MPV 10.8 H, Neut % (Auto) 51.2, Lymph % (Auto) 30.6, [place] % (Auto) 6.1, Eos % (Auto) 10.9, Baso % (Auto) 1.0, Neut # (Auto) 4.8, Lymph # (Auto) 2.9, [place] # (Auto) 0.6, Eos # (Auto) 1.0 H, Baso # (Auto) 0.1, PT 11.0, INR 0.99, Sodium 139, Potassium 3.9, Chloride 103, Carbon Dioxide 29, Anion Gap 10.9, BUN 7, Creatinine 0.70, Estimated Creat Clear 52, Estimated GFR 84, Est GFR ( Amer) 101, Glucose 123 H, Calcium 10.1, Total Bilirubin 0.6, AST 37 H, ALT 21, Alkaline Phosphatase 104, Troponin I < 0.01, NT-Pro-B Natriuret Pep 37.8, Total Protein 7.5, Albumin 4.8, Globulin 2.7, Albumin/Globulin Ratio 1.8 12/03/24 01:57: VBG pH 7.27 L, VBG pCO2 60.2 H, VBG pO2 37.2, VBG HCO3 27.0, VBG Total CO2 28.9 H, VBG O2 Saturation 63.7, VBG Base Excess -1.4, VBG Lactic Acid 0.9 12/03/24 01:23 12/03/24 01:23 Response Orders (Tests/Meds): ED MEDICATIONS Discontinued Medications Generic Name Dose Route Start Last Admin Trade Name Freq PRN Reason Stop Dose Admin Albuterol Sulfate 20 mg 12/03/24 02:07 12/03/24 02:14 Albuterol 0.083% 2.5 Mg/3 Ml Neb IH 12/03/24 02:08 20 mg ONCE ONE Administration Albuterol/Ipratropium 9 ml 12/03/24 01:25 12/03/24 02:13 Ipratropium/Albuterol 3 Ml Neb IH 12/03/24 01:26 9 ml ONCE ONE Administration Aspirin 324 mg 12/03/24 01:26 12/03/24 01:43 Aspirin 81mg Chewable Tablet PO 12/03/24 01:27 324 mg ONCE ONE Administration Iopamidol 80 ml 12/03/24 02:10 12/03/24 02:11 Iopamidol-370 (76%);100ml Bottle IV 12/03/24 02:11 80 ml ONCE ONE Administration Methylprednisolone Sodium Succinate 125 mg 12/03/24 01:27 12/03/24 01:45 Methylprednisolone Sod Succ 125mg Vial IV 12/03/24 01:28 125 mg ONCE ONE Administration Midazolam HCl 1 mg 12/03/24 02:42 12/03/24 02:46 Midazolam 2mg/2ml Vial IV 12/03/24 02:43 1 mg ONCE ONE Administration Sodium Chloride 50 ml 12/03/24 02:10 12/03/24 02:11 0.9 % Sodium Chloride 50 Ml Vial IV 12/03/24 02:11 50 ml ONCE ONE Administration Sodium Chloride 10 ml 12/03/24 02:10 12/03/24 02:11 Sodium Chloride 0.9% 10ml Syr (Rad Only) IV 12/03/24 02:11 10 ml ONCE ONE Administration ORDERS Category Date Time Status CT angio chest PE protocol Stat Cat Scan 12/03/24 01:26 Taken XR chest portable Stat Exams 12/03/24 01:26 Taken Complete Blood Count Auto Diff Stat Lab 12/03/24 01:23 Completed Comprehensive Metabolic Panel Stat Lab 12/03/24 01:23 Completed Full Resp Panel w/COVID ([facility]) Routine Lab 12/03/24 02:45 Ordered HIV Combo Stat Lab 12/03/24 01:23 Received Hepatitis C Ab Qual. W/ RFX Stat Lab 12/03/24 01:23 Received NT Pro Brain Natriuretic Pep. Stat Lab 12/03/24 01:23 Completed Prothrombin Time INR Stat Lab 12/03/24 01:23 Completed Troponin I Q3H Lab 12/03/24 04:30 Ordered Troponin I Q3H Lab 12/03/24 07:30 Ordered Troponin I Stat Lab 12/03/24 01:23 Completed Venous Blood Gas Stat RT 12/03/24 01:57 Completed MDM Narrative Medical Decision Narrative: In summary, this 64-year-old female with history of COPD presents to the emergency department today with shortness of. On initial evaluation patient is tachycardic but otherwise hemodynamically stable, afebrile, hypoxic on arrival but placed on nasal cannula and improving, patient has diminished breath sounds throughout with expiratory wheezing, she sounds extremely tight auscultation of the lungs. She is tripoding and does have accessory muscle use, she has no peripheral edema, no swelling in the legs or tenderness of the calves, abdominal exam benign, remainder of exam benign. Differential diagnosis includes but is not limited to COPD exacerbation, pneumonia, ACS, PE, electrolyte abnormality, among others. Based on these concerns, I ordered cardiac workup, serum labs, CT imaging. Immediately after arrival patient was started on DuoNebs. I also ordered Solu- Medrol for her after discussing her previous reactions to steroids. I believe it is very important for her to get steroids for the anti-inflammatory treatment at this time despite her adverse reactions previously since they do not sound like allergy. ECG personally to read demonstrate sinus tachycardia, rate 102, normal axis, normal ME and QTc, no STEMI Labs personally reviewed demonstrate VBG with respiratory acidosis. Hypercarbia present. VBG lactic normal at 0.94. No leukocytosis or anemia on CBC, normal platelets, PT/INR normal, CMP nonactionable, AST slightly elevated at 37 which is nonspecific and nonactionable at this time. Initial troponin undetectably low less than 0.01 reassuring its cardiac etiology given patient's multiple days of symptoms. On reassessment after the DuoNebs but prior to going to CT patient is still diminished throughout and wheezing. She does not have nearly as much accessory muscle use and is no longer tripoding. She states her chest has been uncomfortable since her shortness of breath started many days ago and this does not feel changed though she states her breathing does feel slightly easier. Patient is going to go to CT since her respiratory rate is improved and she is oxygenating well but when she returns from CT will start her on NIPPV to help with hypercarbia correction and continuous albuterol. CT personally interpreted demonstrates no infectious findings, no segmental or subsegmental PE. See radiology read for final interpretation. Patient was started on NIPPV and continuous albuterol when she returned from CT. She was very anxious with this so low-dose Versed has been administered to help her tolerate the positive pressure ventilation so she can correct her hypercarbia. I had considered giving the patient antibiotics but she has already been on azithromycin from her PCP and with no cough or any other infectious signs or symptoms clinically or on labs, I am not passionate about adding any other antibacterial therapy at this time. I discussed this case with the hospitalist including the reasons I have not started antibiotics for the patient, he is in agreement with the management so far in the ER and the patient was accepted to the hospitalist service for admission by Dr. Bustamante. Patient admitted in stable condition.
[2024-12-03 01:53] LABS: NT Pro Brain Natriuretic Pep. 37.8 pg/mL (0-125)
[2024-12-03 01:55] LABS: Troponin I < 0.01 ng/ml (0.00-0.034)
[2024-12-03] MEDS: IOPAMIDOL-370 (76%);100ML BOTTLE 80 ML IV (02:11)
[2024-12-03] MEDS: 0.9 % SODIUM CHLORIDE 50 ML VIAL IV (02:11)
[2024-12-03] MEDS: SODIUM CHLORIDE 0.9% 10ML SYR (RAD ONLY) 10 ML IV (02:11)
[2024-12-03] MEDS: IPRATROPIUM/ALBUTEROL 3 ML NEB 9 ML IH (02:13)
[2024-12-03] MEDS: ALBUTEROL 0.083% 2.5 MG/3 ML NEB 20 MG IH (02:14)
[2024-12-03 02:23] LABS: VBG HCO3 27.0 mmol/L (23-30); VBG PCO2 60.2 mmol/L (35-51); VBG PH 7.27 mmol/L (7.31-7.41); VBG PO2 37.2 mmol/L (28-40)
[2024-12-03 02:24] LABS: Lactate Venous 0.9 mmol/L (0.4-2.0)
[2024-12-03] MEDS: MIDAZOLAM 2MG/2ML VIAL 1 MG IV (02:46)
--- NOTE | 2024-12-03 02:52 | P.HP_ITS ---
History of Present Illness *Admission Date: 12/03/24 *Reason for visit:: dyspnea *History of present illness: Ms. Contreras is a 64-year-old female with history of COPD, anxiety, hypothyroid who has had a week of worsening dyspnea per her report. States her nebulizers at home just were not working anymore and she became more increasingly short of breath. Came to the ER for evaluation. On arrival was found to be in moderate respiratory distress. Initial blood gas with VBG showing pH 7.27 and PCO2 of 60. Initial labs nonactionable with normal white count, normal kidney function. Initiated on BiPAP due to respiratory distress and placed on continuous nebulizer. Chest imaging obtained with CTA negative for PE or airspace disease. Initial troponin less than 0.01. Medicine consulted due to respiratory distress and need for further management on BiPAP. On my evaluation, patient has shown some response to nebulizers. Tolerating BiPAP. Appears more comfortable. Denies chest pain or chest pressure. Does complain of some muscle tightness in her upper back. No nausea, vomiting, diarrhea. Denies any fevers. Denies any productive cough. Does report that her PCP started her on azithromycin earlier in the week but has not had an improvement or response to this medication. Was given steroids but did not start them. Alert and oriented x 4. Family at bedside. [facility] Disclaimer: The information contained in this section may have been updated after the patient was seen, as this information can be updated by other users. Medical History (Updated 12/03/24 @ 06:52 by Cezar Bustamante MD) GERD (gastroesophageal reflux disease) Hypothyroidism COPD (chronic obstructive pulmonary disease) Lump on neck Surgical History History of thyroid surgery Hx of section Family History Diabetes Mother Heart disease Brother Mother Cancer Sister Brother Social History Smoking Status: Former smoker alcohol intake: never current occupational status: other Travel in the last 8 weeks?: None Have you lived/traveled outside US in past 30 days?: No Contact w/someone who lives/traveled outside US past 30 days?: No Exposure to someone with infectious disease in past 14 days?: No Do you have a fever (greater than 100.4 F or 38 C)?: No Have you tested positive for COVID-19?: No Exposed to someone with COVID-19 in past 14 days?: No Do you have a sore throat?: No Do you have a cough?: No Do you have any weakness?: No Do you have any diarrhea?: No Are you experiencing any unusual bleeding?: No Do you have any muscle aches/pain?: No Do you have any abdominal pain?: No Are you experiencing loss of taste or smell?: No Other Medical History Have you received the Pneumonia Vaccine: Yes Review of Systems Review of Systems Review of systems (narrative): 14 point review of systems performed, pertinent positives and negatives as per HPI Meds Home Medications and Allergies Home Medications ?Medication ?Instructions ?Recorded ?Confirmed ?Type tiotropium 2.5 mcg-olodaterol 2.5 2.5 inh inhalation A S NEEDED PRN 10/11/20 12/03/24 History mcg/actuation mist for inhalation sob (Stiolto Respimat) atorvastatin 10 mg tablet 10 mg PO DAILY 09/22/2307/25 History levothyroxine 50 mcg tablet 50 mcg PO DAILY 09/22/23 0 12/03/24 History sertraline 25 mg tablet 25 mg PO DAILY 09/22/2307/25 History ipratropium 0.5 mg-albuterol 3 mg 3 ml inhalation MARINA Y PRN 12/03/24 12/03/24 History (2.5 mg base)/3 mL nebulization Shortness Of Breath Or Wheezing soln New Prescriptions to Start Prescriptions: Allergies Allergy/AdvReac Type Severity Reaction Status Date / Time Corticosteroids AdvReac Intermediate MAKES Verified 05/30/24 09:10 (Glucocorticoids) PATIENT RED AND FEEL HOT. Exam Data for Last 24 hours Vital signs and Labs for Last 24 Hours: Temp Pulse Resp BP Pulse Ox O2 Del Method 98.2 F 108 H 17 155/84 H 87 L Room Air 12/03/24 01:33 12/03/24 01:33 12/03/24 01:33 12/03/24 01:33 12/03/24 01:33 12/03/24 01:33 Laboratory Results - last 24 hr 12/03/24 01:23: WBC 9.3, RBC 5.25, Hgb 15.3, Hct 46.4, MCV 88.4, MCH 29.1, MCHC 33.0, RDW 12.9, Plt Count 243, MPV 10.8 H, Neut % (Auto) 51.2, Lymph % (Auto) 30.6, [place] % (Auto) 6.1, Eos % (Auto) 10.9, Baso % (Auto) 1.0, Neut # (Auto) 4.8, Lymph # (Auto) 2.9, [place] # (Auto) 0.6, Eos # (Auto) 1.0 H, Baso # (Auto) 0.1, PT 11.0, INR 0.99, Sodium 139, Potassium 3.9, Chloride 103, Carbon Dioxide 29, Anion Gap 10.9, BUN 7, Creatinine 0.70, Estimated Creat Clear 52, Estimated GFR 84, Est GFR ( Amer) 101, Glucose 123 H, Calcium 10.1, Total Bilirubin 0.6, AST 37 H, ALT 21, Alkaline Phosphatase 104, Troponin I < 0.01, NT-Pro-B Natriuret Pep 37.8, Total Protein 7.5, Albumin 4.8, Globulin 2.7, Albumin/Globulin Ratio 1.8 12/03/24 01:57: VBG pH 7.27 L, VBG pCO2 60.2 H, VBG pO2 37.2, VBG HCO3 27.0, VBG Total CO2 28.9 H, VBG O2 Saturation 63.7, VBG Base Excess -1.4, VBG Lactic Acid 0.9 I & O for Last 24 hours: Intake & Output 11/30/24 12/01/24 12/02/24 12/03/24 23:59 23:59 23:59 23:59 Weight 58.967 kg Constitutional Constitutional: mild distress, thin, chronically ill appearing and cooperative *Routine HEENT Exam Head: Present normocephalic Eye: Present EOMI and PERRL ENT: Present mucous membranes moist *Routine Neck Exam Neck: Present supple; Absent lymphadenopathy *Routine Respiratory Exam Respiratory: Present accessory muscle use, prolonged expiratory phase, wheezes and diminished air movement; Absent rhonchi or crackles Comments: Initial exam as above; Repeat exam later in the morning showed improvement in wheeze. No longer in respiratory distress *Routine Cardiovascular Exam Cardiovascular: Present tachycardia *Routine Abdominal Exam Abdominal: Present soft and normoactive bowel sounds; Absent tenderness *Routine Rectal Exam Rectal:: deferred *Routine Genitalia Exam Genitalia:: deferred *Routine Extremities Exam Extremities: Absent cyanosis, clubbing or edema *Routine Skin Exam Skin: Present intact and warm; Absent rash *Routine Neurological Exam Neurological: Present alert, oriented X3 and moving all extremities; Absent altered mental status Assessment and Plan *Assessment and plan (1) Acute respiratory failure with hypoxia and hypercarbia: Status: Acute Category: Medical Code(s): J96.01 - Acute respiratory failure with hypoxia; J96.02 - Acute respiratory failure with hypercapnia (2) COPD exacerbation: Status: Acute Category: Medical Code(s): J44.1 - Chronic obstructive pulmonary disease with (acute) exacerbation (3) NSTEMI (non-ST elevated myocardial infarction): Status: Acute Category: Medical Code(s): I21.4 - Non-ST elevation (NSTEMI) myocardial infarction (4) GERD (gastroesophageal reflux disease): Status: Chronic Category: Medical Code(s): K21.9 - Gastro-esophageal reflux disease without esophagitis (5) Hypothyroidism: Status: Chronic Category: Medical Code(s): E03.9 - Hypothyroidism, unspecified Plan Ms. Contreras is a 64-year-old female with history of COPD who presented with a week of worsening shortness of breath. Became acutely worse prior to presentation and her nebulizers were not working. On arrival to the ED, she was found to be in acute exacerbation with hypercapnia and hypoxia. Placed on BiPAP. Discussion with ER physician, request admission for further management due to her acute respiratory failure, COPD exacerbation, respiratory distress. I decided to admit to stepdown level of care and continue BiPAP therapy at this time while continuing breathing treatments and steroids. Serial troponin showed a bump in levels. EKG obtained per my review showing no ischemic change. Meeting criteria for type II NSTEMI. Will have pulmonology and cardiology consult on patient. Continues to require inpatient management. Problems addressed as follows: Acute hypoxic and hypercarbic respiratory failure COPD exacerbation - Initial blood gas with VBG showing pH 7.27, [id number], pO2 37. O2 sats in the 80s. Placed on BiPAP with a rate of 20. Pulling good volumes. Will repeat VBG in 3 hours. Work of breathing improved. - Received continuous neb in the ED. Will continue DuoNebs every 4 hours scheduled. Initiate budesonide twice daily - Status post 1 dose methylprednisolone in the ED. Continue prednisone 40 mg daily - White count normal at 9. Per my review of chest CT has no focal airspace disease, consolidation, effusion or pulmonary emboli. Does have some suggestions of air trapping. - Repeat CBC, CMP, magnesium ordered for the morning - Comprehensive respiratory panel negative for all analytes - Wean oxygen as tolerated, goal sats greater 90%. NSTEMI, type II - Initial troponin less than 0.01. EKG on admission normal sinus rhythm with no ST changes. 3-hour troponin bumped to 1.1. Will continue to trend troponin. Repeat EKG stable with no ischemic changes per my review. Consistent with type II NSTEMI due to stress of COPD exacerbation, hypoxia. - Cardiology consulted to evaluate in the morning. - Increase home Lipitor to 40 mg nightly. Lipid panel ordered for the morning. - Loaded with 324 mg aspirin in the ER. Continue aspirin 81 mg daily along with therapeutic Lovenox 1 mg/kg twice daily. - Holding on blood pressure treatment or beta-pal at this time unless heart rate continues to increase. - Initial liver enzymes normal with bilirubin 0.6, AST 37, ALT 21. Kidney function normal with BUN 7, creatinine 0.7 Hypothyroid: Continue levothyroxine 50 mcg daily. TSH obtained, 3.7 Anxiety: Continue home Zoloft 25 mg daily Full code Therapeutic Lovenox Cardiac diet
[2024-12-03 03:03] LABS: Hepatitis C Ab Qual. W/ RFX NEGATIVE (Negative)
--- NOTE | 2024-12-03 03:23 | PC.NURSE ---
Patient arrived to ICU unit via stretcher from ED @03:22am
[2024-12-03 03:27] LABS: Adenovirus,PCR Not Detected (NotDetected); Chlamydophila Pneumoniae, PCR Not Detected (NotDetected); Coronavirus 19, PCR Not Detected (NotDetected); Coronovirus HKU1,PCR Not Detected (NotDetected); Influenza A, PCR Not Detected (NotDetected); Influenza AH1, 2009 Not Detected (NotDetected); Influenza AH1, PCR Not Detected (NotDetected); Influenza AH3,PCR Not Detected (NotDetected); Influenza B, PCR Not Detected (NotDetected); Mycoplasma Pneumoniae, PCR Not Detected (NotDetected); Parainfluenza 1, PCR Not Detected (NotDetected); Parainfluenza 2, PCR Not Detected (NotDetected); Parainfluenza 3, PCR Not Detected (NotDetected); Parainfluenza 4, PCR Not Detected (NotDetected)
[2024-12-03 03:33] LABS: Thyroid Stimulating Hormone 3.69 uIU/mL (0.465-4.68)
[2024-12-03 06:03] LABS: Albumin Level 3.8 g/dl (3.5-5.0); Chloride 101 mmol/L (98-107); Hematocrit 42.9 % (37.0-47.0); Hemoglobin 14.2 g/dL (12.2-16.2); Immature Granulocytes % 0.4 %; Mean Corpuscular HGB Conc 33.1 g/dL (31.8-35.4); Mean Corpuscular Hemoglobin 29.3 pg (27.0-31.2); Mean Corpuscular Volume 88.5 fl (81-99); Nucleated Red Blood Cells % 0 %; Platelet Count 222 K/mm3 (142-424); Red Blood Count 4.85 M/mm3 (4.20-5.40); Red Cell Distribution Width-SD 41.8 fL; Sodium 134 mmol/L (136-145); White Blood Count 12.7 K/mm3 (4.8-10.8)
[2024-12-03 06:04] LABS: Potassium 3.5 mmoL/L (3.5-5.1)
[2024-12-03 06:06] LABS: Alanine Aminotransferase 19 U/L (12-78); Albumin/Globulin Ratio 1.2 (1.1-1.8); Alkaline Phosphatase 117 U/L (38-126); Anion Gap 9.5 mEq/L (5-15); Aspartate Amino Transferase 33 U/L (14-36); Bilirubin,Total 0.5 mg/dl (0.2-1.3); Blood Urea Nitrogen 8 mg/dl (7-17); Carbon Dioxide 27 mmol/L (22.0-30.0); Creatinine Clearance Estimated 45 mL/min (50-200); Creatinine,Serum 0.70 mg/dl (0.52-1.04); Estimated Glomerular Filt Rate 84 ml/min (>60); GFR (African American) 101 ML/MIN (>60); Globulin 3.2 g/dL (1.3-3.2); Total Protein,Serum 7.0 g/dl (6.3-8.2)
[2024-12-03 06:07] LABS: Calcium 9.8 mg/dl (8.4-10.2); Glucose 142 mg/dl (74-100); Magnesium 1.9 mg/dl (1.6-2.3)
[2024-12-03] MEDS: IPRATROPIUM/ALBUTEROL 3 ML NEB IH ×3 (06:15→23:02)
[2024-12-03 06:21] LABS: Troponin I 1.12 ng/ml (0.00-0.034)
--- NOTE | 2024-12-03 06:26 | ECG_ITS ---
APPROVED REPORT Exam: Resting ECG HR:91 bpm ECG Measurements Heart Rate 91 AXES OK 149 P 90 QRSd 84 QRS 83 QT 351 T 80 QTc 400 Conclusion SINUS RHYTHM NORMAL ECG INTERPRETATION BASED ON A DEFAULT AGE OF 40 YEARS UNCONFIRMED REPORT Electronically signed by : Alex Haynes MD 12/04/2024 07:25:00
[2024-12-03 06:42] LABS: VBG HCO3 25.5 mmol/L (23-30); VBG PCO2 48.2 mmol/L (35-51); VBG PH 7.34 mmol/L (7.31-7.41); VBG PO2 33.3 mmol/L (28-40)
[2024-12-03 06:43] LABS: Lactate Venous 1.5 mmol/L (0.4-2.0)
--- NOTE | 2024-12-03 09:00 | HMH.PHAINT1 ---
Pharmacy Intervention Comments: MEDICATION RECONCILIATION COMPLETE USING EXTERNAL PHARMACY FILL HISTORY.
--- NOTE | 2024-12-03 09:08 | PC.NURSE ---
pt left to unit to be transferred over to med surg with ICU staff
--- NOTE | 2024-12-03 09:11 | PC.NURSE ---
patient arrived to the [facility] floor room 218 via wheelchair [id number]
[2024-12-03 09:32] LABS: Troponin I 1.25 ng/ml (0.00-0.034)
[2024-12-03] MEDS: LEVOTHYROXINE 50MCG (0.05MG) TAB 50 MCG PO (09:53)
[2024-12-03] MEDS: SERTRALINE 50MG TABLET 25 MG PO (09:53)
[2024-12-03] MEDS: ASPIRIN EC 81MG TABLET 81 MG PO (09:53)
[2024-12-03 13:02] LABS: Troponin I 1.38 ng/ml (0.00-0.034)
[2024-12-03 15:52] LABS: Troponin I 1.33 ng/ml (0.00-0.034)
--- NOTE | 2024-12-03 17:13 | EXP.EVENT.NO ---
Patient is seen and evaluated at the bedside, patient denies chest pain nausea vomiting abdominal my evaluation, still complains of some shortness of breath. Patient admitted for acute hypoxic hypercapnic respiratory failure, COPD exacerbation Continue prednisone, breathing treatments Patient was also noted to have elevated troponin, continue to follow trend troponin, cardiology consulted Continue aspirin, statin CCM date H&P for further recommendations, reviewed patient chart labs radiology and medication list
--- NOTE | 2024-12-03 17:54 | PC.NURSE ---
took report from nicole fountain this morning. pt was sinus tach the first half of the shift with hr of 98-105bpm. md aware. pt is now nsr with a hr in the 80s. elevated trops t/o shift, notified . pt has no complaints and vss at this time. no needs, cb within reach
[2024-12-03] MEDS: BUDESONIDE 0.5MG/2ML NEB 0.5 MG IH (18:47)
[2024-12-03] MEDS: ATORVASTATIN 40MG TABLET 40 MG PO (20:39)
[2024-12-04] VITALS (24 sets, daily range): BP systolic 92–145; BP diastolic 56–76; PULSE 67–106; RESP 16–20; TEMP 36.4–37; O2SAT 75–99; BMI 19.6
--- NOTE | 2024-12-04 04:22 | PC.NURSE ---
Pt A&O x4. Pt is currently on RA. Pt was on 1LNC at beginning of shift, and was weaned to RA. Pt has maintained an O2 sat above 90. Pt has had no other acute changes noted. Pt medicated per JUL. Pt not voicing any concerns. Pt resting w/ call light in reach. POC ongoing.
--- NOTE | 2024-12-04 04:33 | PC.NURSE ---
Pt was sleeping and laying flat, Tech reported O2 sat of 75. Pt placed on 1LNC and O2 sat raised to 95. POC ongoing.
[2024-12-04] MEDS: LEVOTHYROXINE 50MCG (0.05MG) TAB 50 MCG PO (06:20)
[2024-12-04 06:31] LABS: Hematocrit 43.1 % (37.0-47.0); Hemoglobin 13.8 g/dL (12.2-16.2); Immature Granulocytes % 0.9 %; Mean Corpuscular HGB Conc 32.0 g/dL (31.8-35.4); Mean Corpuscular Hemoglobin 28.0 pg (27.0-31.2); Mean Corpuscular Volume 87.6 fl (81-99); Nucleated Red Blood Cells % 0 %; Platelet Count 222 K/mm3 (142-424); Red Blood Count 4.92 M/mm3 (4.20-5.40); Red Cell Distribution Width-SD 41.2 fL; White Blood Count 16.2 K/mm3 (4.8-10.8)
[2024-12-04] MEDS: IPRATROPIUM/ALBUTEROL 3 ML NEB IH ×3 (06:42→18:55)
[2024-12-04] MEDS: BUDESONIDE 0.5MG/2ML NEB 0.5 MG IH ×2 (06:42→18:55)
[2024-12-04 06:52] LABS: Chloride 101 mmol/L (98-107); Potassium 3.9 mmoL/L (3.5-5.1); Sodium 132 mmol/L (136-145)
[2024-12-04 06:55] LABS: Anion Gap 8.9 mEq/L (5-15); Blood Urea Nitrogen 14 mg/dl (7-17); Carbon Dioxide 26 mmol/L (22.0-30.0); Creatinine Clearance Estimated 46 mL/min (50-200); Creatinine,Serum 0.60 mg/dl (0.52-1.04); Estimated Glomerular Filt Rate 100 ml/min (>60); GFR (African American) 121 ML/MIN (>60)
[2024-12-04 06:56] LABS: Calcium 9.8 mg/dl (8.4-10.2); Glucose 112 mg/dl (74-100); Magnesium 2.0 mg/dl (1.6-2.3)
[2024-12-04 07:00] LABS: Cholesterol 157 mg/dl (140-200); HDL Cholesterol 59 mg/dl (40-60); Triglycerides 123 mg/dl (30-150)
--- NOTE | 2024-12-04 09:04 | CA_ITS ---
APPROVED REPORT EXAM: Comprehensive 2D, Doppler, and color-flow Echocardiogram Sheet Metal Superintendent: Lisa Arriaza RVT Ht: 5 ft 4 in Wt: 115lbs BSA: 1.55 BP: 155/84 mmHg Indications: NSTEMI,SHORTNESS OF BREATH,COPD 2D Dimensions IVSd 0.56 cm F: 0.6-1.0 LVEF (Visual) 66.70 % PWd 0.79 cm F: 0.6 - 1.0 LA Volume 18.40 mL LVDd 4.24 cm F: 3.9 - 5.3 LA Volume Index 11.87 mL/m2 (M/F) 16-34 LVDs 2.69 cm F: 2.2 - 3.5 M-Mode Dimensions LA Diam 3.09 cm (1.9-4.0) TAPSE 2.04 (<1.7) LV Diastology E Decel Time 150 (160-240 msec) E/A Ratio 0.8 Aortic Valve YFN Index 1.08 cm2/m2 AoV Peak Kian. 131.0 (50-130 cm/s) AO Peak GR. 6.80 mmHg AO Mean GR. 3.60 (<5 mmHg) AO VTI 28.4 (18-25 cm) YFN (VTI) 1.70 (2.5-4.5 cm2) Mitral Valve MV E Max Kian. 68.0 (40-130 cm/s) MV A Velocity 88.0 (40-130 cm/s) E/A Ratio 0.78 MV PHT 44.0 ms Pulmonary Valve PV Peak Velocity 60.0 (50-150 cm/s) Tricuspid Valve TR P. Velocity 221.00 cm/s RAP Estimate 8.00 mmHg RVSP 27.50 mmHg Left Ventricle The left ventricle is normal size. Left ventricular systolic function is mildly reduced. There is normal left ventricular wall thickness. There is moderate hypokinesis of the basal anterolateral LV wall. The left ventricular diastolic function is normal. LVEF is 45-50% Right Ventricle The right ventricle is normal size. The right ventricular systolic function is normal. Atria The left atrium size is normal. The right atrium size is normal. There is no color Doppler evidence of interatrial shunt. Aortic Valve The aortic valve is mildly thickened. There is no hemodynamically significant aortic valvular stenosis. No aortic regurgitation is present. Mitral Valve The mitral valve is normal in structure. No evidence of mitral valve stenosis. Mild mitral regurgitation is present. Tricuspid Valve The tricuspid valve leaflets are thin and pliable. Mild tricuspid regurgitation. RVSP is 20-25 mmHg. Pulmonic Valve The pulmonary valve is grossly normal in structure. Trace pulmonic valve regurgitation is present. Great Vessels The aortic root is normal in size. IVC is normal in size and collapses >50% with inspiration. Pericardium There is no pericardial effusion. Other Information Study Quality: Fair Conclusion Mildly reduced LV systolic function (LVEF 45-50%). Moderate hypokinesis of the basal anterolateral LV wall. Mild MR, mild TR. Electronically signed by : Margaret Pierre MD 12/04/2024 18:05:37
[2024-12-04] MEDS: SIMETHICONE 80MG CHEWABLE TABLET 80 MG PO ×2 (09:17→18:49)
[2024-12-04] MEDS: ASPIRIN EC 81MG TABLET 81 MG PO (09:17)
[2024-12-04] MEDS: SERTRALINE 50MG TABLET 25 MG PO (09:17)
--- NOTE | 2024-12-04 09:48 | EXP.PULM.CON ---
History of Present Illness History of present illness: Ms. Contreras is a 64-year-old female greater than [id number] smoking history, last smoked more than 15 years ago at baseline on Stiolto inhaler not needing her rescue inhaler more than once every 1 to 2 months with no frequent exacerbations, hypothyroidism, anxiety presented to ER with worsening respiratory distress and pulmonary was called for further evaluation and management. Admit subacute worsening respiratory distress with worsening wheezing and shortness of breath. Denies any known sick contacts but no subjective fevers or chills. Denies any worsening cough/productive phlegm. [facility] Disclaimer: The information contained in this section may have been updated after the patient was seen, as this information can be updated by other users. Medical History (Updated 12/04/24 @ 12:48 by Leslie Berry MD) Multiple lung nodules on CT GERD (gastroesophageal reflux disease) Hypothyroidism COPD (chronic obstructive pulmonary disease) Lump on neck Surgical History History of thyroid surgery Hx of section Family History Diabetes Mother Heart disease Brother Mother Cancer Sister Brother Social History Smoking Status: Former smoker alcohol intake: never current occupational status: other Travel in the last 8 weeks?: None Have you lived/traveled outside US in past 30 days?: No Contact w/someone who lives/traveled outside US past 30 days?: No Exposure to someone with infectious disease in past 14 days?: No Do you have a fever (greater than 100.4 F or 38 C)?: No Have you tested positive for COVID-19?: No Exposed to someone with COVID-19 in past 14 days?: No Do you have a sore throat?: No Do you have a cough?: No Do you have any weakness?: No Do you have any diarrhea?: No Are you experiencing any unusual bleeding?: No Do you have any muscle aches/pain?: No Do you have any abdominal pain?: No Are you experiencing loss of taste or smell?: No Review of Systems Constitutional Constitutional: Denies anorexia, Denies body ache(s) and Denies fatigue Eyes Eyes: Denies eye discharge, Denies dry eyes, Denies irritation and Denies itchy eyes ENT Ears, Nose, Mouth, and Throat: Denies epistaxis, Denies facial pain, Denies lip swelling and Denies throat swelling *Cardiovascular Cardiovascular: Reports dyspnea and Reports dyspnea on exertion *Respiratory Respiratory: Denies change in phlegm color, Reports chest congestion, Reports cough, Reports dyspnea, Reports dyspnea on exertion, Denies excessive phlegm production, Denies hemoptysis, Denies pain on inspiration, Denies pain with cough and Reports wheezing *Gastrointestinal Gastrointestinal: Denies abdominal pain, Denies belching and Denies cramping *Musculoskeletal Musculoskeletal: Denies myalgias and Reports other (No small joint swelling or Pain) Psychiatric Psychiatric: Denies homicidal ideation and Denies suicidal ideation Endocrine Endocrine: Denies fatigue and Denies heat intolerance Hematologic/Lymphatic Hematologic/Lymphatic: Denies easy bleeding and Denies lymphadenopathy Allergic/Immunologic Allergic/Immunologic: Denies itchy eyes, Denies lip swelling, Denies throat swelling and Reports wheezing Pulmonology Exam Inpatient Vital signs and Labs for Last 24 Hours: Temp Pulse Resp BP Pulse Ox O2 Del Method O2 Flow Rate 97.7 F 106 H 16 92/67 L 93 L Room Air 2 12/04/24 08:00 12/04/24 08:00 12/04/24 08:00 12/04/24 08:00 12/04/24 08:00 12/04/24 08:09 12/04/24 06:44 Laboratory Results - last 24 hr 12/03/24 11:50: Troponin I 1.38 H 12/03/24 15:10: Troponin I 1.33 H 12/04/24 05:22: WBC 16.2 H D, RBC 4.92, Hgb 13.8, Hct 43.1, MCV 87.6, MCH 28.0, MCHC 32.0, RDW 12.8, Plt Count 222, MPV 11.3 H, Neut % (Auto) 85.2 H, Lymph % (Auto) 7.9 L, [place] % (Auto) 5.7, Eos % (Auto) 0.1, Baso % (Auto) 0.2, Neut # (Auto) 13.8 H, Lymph # (Auto) 1.3, [place] # (Auto) 0.9, Eos # (Auto) 0.0, Baso # (Auto) 0.0, Sodium 132 L, Potassium 3.9, Chloride 101, Carbon Dioxide 26, Anion Gap 8.9, BUN 14 D, Creatinine 0.60, Estimated Creat Clear 46, Estimated GFR 100, Est GFR ( Amer) 121, Glucose 112 H D, Calcium 9.8, Magnesium 2.0, Triglycerides 123, Cholesterol 157, LDL Cholesterol Direct 60.23 L, VLDL Cholesterol 25, HDL Cholesterol 59, Cholesterol/HDL Ratio 2.7 I & O for Labs for Last 24 Hours: Intake & Output 12/01/24 12/02/24 12/03/24 12/04/24 23:59 23:59 23:59 23:59 Intake Total 520 / 520 480 / 480 Output Total 500 / 500 0 / 0 Balance 480 / 480 Weight 112 lb 6.972 oz 115 lb Constitutional: Present mild distress Head: Present normocephalic and atraumatic ENT: Present normal exam, normal oropharynx and mucous membranes moist Neck: Present normal inspection and full ROM Respiratory: Present prolonged expiratory phase and able to speak in complete sentences; Absent respiratory distress, rhonchi, stridor or wheezes Cardiac: Present S1/S2, Tachycardia and radial pulses present GI: Present soft and distention; Absent tenderness or guarding Rectal (female): Present deferred (female): Present deferred Skin: Present intact; Absent cyanosis or jaundice Neuro: Present alert, awake and oriented x 3 Extremities: Present normal inspection; Absent clubbing or cyanosis Psychiatric: Present normal affect and cooperative Meds Home Medications and Allergies Home Medications ?Medication ?Instructions ?Recorded ?Confirmed ?Type tiotropium 2.5 mcg-olodaterol 2.5 2 puff inhalation DAILY 10/11/20 12/03/24 History mcg/actuation mist for inhalation (Stiolto Respimat) atorvastatin 10 mg tablet 10 mg PO HS 09/22/23 12/03/24 History levothyroxine 50 mcg tablet 50 mcg PO DAILYDM 09/22/23 12/03/24 History sertraline 25 mg tablet 25 mg PO DAILY 09/22/23 12/03/24 History ipratropium 0.5 mg-albuterol 3 mg 3 ml inhalation Q6HP PRN Shortness 12/03/24 12/03/24 History (2.5 mg base)/3 mL nebulization Of Breath Or Wheezing soln New Prescriptions to Start Prescriptions: Allergies Allergy/AdvReac Type Severity Reaction Status Date / Time Corticosteroids AdvReac Intermediate MAKES Verified 05/30/24 09:10 (Glucocorticoids) PATIENT RED AND FEEL HOT. Results Laboratory Findings 12/04/24 05:22 12/04/24 05:22 PT/INR, D-dimer PT 11.0 seconds (10.1-12.5) 12/03/24 01:23 INR 0.99 (0.9-1.1) 12/03/24 01:23 Abnormal lab findings: Abnormal Labs 12/03/24 12/03/24 12/03/24 01:23 01:57 05:30 WBC 12.7 H D MPV 10.8 H 11.0 H Neut % (Auto) 93.2 H Lymph % (Auto) 4.6 L [place] % (Auto) 0.5 L Neut # (Auto) 11.9 H Lymph # (Auto) 0.6 L Eos # (Auto) 1.0 H VBG pH 7.27 L VBG pCO2 60.2 H VBG Total CO2 28.9 H Sodium 134 L Glucose 123 H 142 H AST 37 H Troponin I 1.12 H LDL Cholesterol Direct 12/03/24 12/03/24 12/03/24 08:50 11:50 15:10 WBC MPV Neut % (Auto) Lymph % (Auto) [place] % (Auto) Neut # (Auto) Lymph # (Auto) Eos # (Auto) VBG pH VBG pCO2 VBG Total CO2 Sodium Glucose AST Troponin I 1.25 H 1.38 H 1.33 H LDL Cholesterol Direct 12/04/24 05:22 WBC 16.2 H D MPV 11.3 H Neut % (Auto) 85.2 H Lymph % (Auto) 7.9 L [place] % (Auto) Neut # (Auto) 13.8 H Lymph # (Auto) Eos # (Auto) VBG pH VBG pCO2 VBG Total CO2 Sodium 132 L Glucose 112 H D AST Troponin I LDL Cholesterol Direct 60.23 L Assessment and Plan *Assessment and plan (1) Acute respiratory failure with hypoxia and hypercarbia: Status: Acute Category: Medical Code(s): J96.01 - Acute respiratory failure with hypoxia; J96.02 - Acute respiratory failure with hypercapnia (2) COPD exacerbation: Status: Acute Category: Medical Code(s): J44.1 - Chronic obstructive pulmonary disease with (acute) exacerbation (3) Multiple lung nodules on CT: Status: Acute Category: Medical Code(s): R91.8 - Other nonspecific abnormal finding of lung field Plan Ms. Contreras is a 64-year-old female greater than [id number]-zeaz smoking history, last smoked more than 15 years ago at baseline on Stiolto inhaler not needing her rescue inhaler more than once every 1 to 2 months with no frequent exacerbations, hypothyroidism, anxiety presented to ER with worsening respiratory distress and pulmonary was called for further evaluation and management. Admit subacute worsening respiratory distress with worsening wheezing and shortness of breath. Denies any known sick contacts but no subjective fevers or chills. Denies any worsening cough/productive phlegm. Afebrile. Hemodynamically relatively stable. Neutrophilic predominant leukocytosis, worsening. Comprehensive respiratory viral PCR panel negative Blood gas upon admission venous, hypercarbic respiratory failure with pH of 7.27PCO 260.2, improved. Initially needing noninvasive ventilatory therapy. CTA upon admission no pulmonary embolism. No dense consolidative/airspace changes. Bilateral diffuse centrilobular emphysematous changes. Multiple lung nodules largest being at 6 mm in size. Currently receiving nebulization therapies and steroids On examination mild respiratory distress. No significant wheezing noted on auscultation. Saturating 94 to 96% on room air. Plan: 6-minute walk testing prior to discharge Continue DuoNebs every 6 hours and Pulmicort every 12 scheduled. Patient can be discharged home on Stiolto inhaler along with DuoNebs 4 times daily as needed Continue prednisone 40 mg daily to complete a total of 5-day course Agree with Not initiating antibiotics at this point of time given no concern for infectious etiology # Thank you for involving pulmonary in this patient care. Will follow the patient in pulmonary clinic 2 to 4 weeks with a PFT walk testing. Will also follow with alpha-1 antitrypsin testing as an outpatient basis. # Patient CT chest also noted multiple pulmonary nodules largest being at 6 mm in size. Prior low-dose CT from 2019 with largest nodule of 3 mm in size. Will follow-up with a 6-month CT chest without contrast as an outpatient basis.
--- NOTE | 2024-12-04 10:53 | IR_ITS ---
APPROVED REPORT Patient Location: Inpatient PROCEDURES Left heart catheterization Left ventriculogram Selective coronary angiogram INDICATION Acute non-ST elevation myocardial infarction Informed consent was obtained prior to the procedure. COMPLICATIONS None Estimated Blood Loss: Less than 10 mls TECHNIQUE One percent lidocaine used to anesthetize the right anterior aspect of the wrist. The right radial artery was accessed via the Seldinger technique. A 6 [place] sheath was placed in the right radial artery. 2.5 mg of Verapamil, 800 mcg of nitroglycerin, 1mg Lidocaine and 5000 U Heparin were given through the arterial sheath. The JL3 catheter was also used to perform left heart catheterization, left ventriculogram and selective coronary angiogram. At the end of the procedure the sheath was removed good hemostasis was achieved using Traclet band, patient was transferred to the postop holding area in stable condition. ANGIOGRAPHIC RESULTS The left main artery Normal The left anterior descending artery Proximally normal and then has a mid vessel 40% concentric stenosis immediately distal to medium sized first diagonal artery. The remaining LAD is widely patent. First diagonal artery has an ostial 40% stenosis The circumflex artery Nondominant 10% luminal regularities The right coronary artery Dominant with 10% luminal regularities The LITTLE ventriculogram reveals Normal 65% The left ventricular end-diastolic pressure 20 mmHg IMPRESSION Moderate disease in the mid LAD which is likely the etiology for the acute coronary syndrome/non-ST elevation myocardial infarction. At this point I would recommend medical management with dual antiplatelet therapy for 1 year followed by tobacco cessation and aggressive medical management with a goal LDL less than 55 to be achieved with high intensity statin PLAN 1. At this point I would recommend medical management with dual antiplatelet therapy, aspirin and Plavix and, for 1 year followed by tobacco cessation and aggressive medical management with a goal LDL less than 55 to be achieved with high intensity statin Electronically signed by : Royal Wiggins MD 12/04/2024 13:19:47
[2024-12-04] MEDS: 0.9 % SODIUM CHLORIDE 500 ML 25 ML IV (13:00)
[2024-12-04] MEDS: NITROGLYCERIN 800MCG/8ML SYR (CATH LAB) 800 MCG IA (13:00)
[2024-12-04] MEDS: VERAPAMIL 2.5MG/ML 2ML VIAL 2.5 MG IV (13:01)
[2024-12-04] MEDS: HEPARIN 1,000 UNITS/500ML NS (CATH LAB) 3000 UNIT IV (13:01)
[2024-12-04] MEDS: HEPARIN 1,000 UNITS/ML 10ML VIAL (CATH LAB) 5000 UNIT IV (13:01)
[2024-12-04] MEDS: LIDOCAINE 1% 10ML MDV 10 ML IJ (13:01)
[2024-12-04] MEDS: MIDAZOLAM HCL 1MG/ML 5ML VIAL 1 MG IV (13:11)
[2024-12-04] MEDS: FENTANYL 100MCG/2ML VIAL 50 MCG IV (13:12)
--- NOTE | 2024-12-04 13:35 | P.CONCA_ITS ---
History of Present Illness History of Present Illness Consult date: 01/03/25 Consult reason: shortness of breath Chief complaint: soa History of present illness: 64-year-old white female new here without known cardiovascular disease but a p ositive for history of COPD and former 19-cvom-buch tobacco use. Patient presented with 1 week worsening dyspnea on exertion. In ER she was in respiratory distress requiring BiPAP. She was admitted with COPD exacerbation but also had elevated troponin. First troponin was normal then subsequently 1.1, 1.3, 1.3. proBNP 37, EKG sinus rhythm with an old anterior OH. Currently feeling much better. [facility] Disclaimer: The information contained in this section may have been updated after the patient was seen, as this information can be updated by other users. Medical History Multiple lung nodules on CT GERD (gastroesophageal reflux disease) Hypothyroidism COPD (chronic obstructive pulmonary disease) Lump on neck Surgical History History of thyroid surgery Hx of section Family History Sister Cancer Brother Cancer Heart disease Mother Heart disease Diabetes Social History Smoking Status: Former smoker alcohol intake: never current occupational status: other Travel in the last 8 weeks?: None Have you lived/traveled outside US in past 30 days?: No Contact w/someone who lives/traveled outside US past 30 days?: No Exposure to someone with infectious disease in past 14 days?: No Do you have a fever (greater than 100.4 F or 38 C)?: No Have you tested positive for COVID-19?: No Exposed to someone with COVID-19 in past 14 days?: No Do you have a sore throat?: No Do you have a cough?: No Do you have any weakness?: No Do you have any diarrhea?: No Are you experiencing any unusual bleeding?: No Do you have any muscle aches/pain?: No Do you have any abdominal pain?: No Are you experiencing loss of taste or smell?: No Review of Systems Constitutional Constitutional: Reports fatigue and Reports weakness Eyes Eyes: Denies loss of vision ENT Ears, Nose, Mouth, and Throat: Denies hearing loss and Denies vertigo *Cardiovascular Cardiovascular: Denies chest pain, Reports dyspnea and Denies syncope *Respiratory Respiratory: Reports cough and Reports dyspnea *Gastrointestinal Gastrointestinal: Denies change in stool character, Denies nausea and Denies vomiting *Musculoskeletal Musculoskeletal: Denies muscle weakness Integumentary/Breasts Skin/Breast: Denies changing lesions *Neurologic Neurologic: Denies loss of vision, Denies syncope, Denies vertigo and Reports weakness Endocrine Endocrine: Reports fatigue Exam Data for Last 24 hours Vital signs and Labs for Last 24 Hours: Temp Pulse Resp BP Pulse Ox O2 Del Method O2 Flow Rate 97.8 F 80 20 119/66 97 Nasal Cannula 3.5 12/04/24 12:00 12/04/24 13:30 12/04/24 13:30 12/04/24 13:30 12/04/24 13:30 12/04/24 13:30 12/04/24 13:30 Laboratory Results - last 24 hr 12/03/24 15:10: Troponin I 1.33 H 12/04/24 05:22: WBC 16.2 H D, RBC 4.92, Hgb 13.8, Hct 43.1, MCV 87.6, MCH 28.0, MCHC 32.0, RDW 12.8, Plt Count 222, MPV 11.3 H, Neut % (Auto) 85.2 H, Lymph % (Auto) 7.9 L, [place] % (Auto) 5.7, Eos % (Auto) 0.1, Baso % (Auto) 0.2, Neut # (Auto) 13.8 H, Lymph # (Auto) 1.3, [place] # (Auto) 0.9, Eos # (Auto) 0.0, Baso # (Auto) 0.0, Sodium 132 L, Potassium 3.9, Chloride 101, Carbon Dioxide 26, Anion Gap 8.9, BUN 14 D, Creatinine 0.60, Estimated Creat Clear 46, Estimated GFR 100, Est GFR ( Amer) 121, Glucose 112 H D, Calcium 9.8, Magnesium 2.0, Triglycerides 123, Cholesterol 157, LDL Cholesterol Direct 60.23 L, VLDL Cholesterol 25, HDL Cholesterol 59, Cholesterol/HDL Ratio 2.7 I & O for Last 24 hours: Intake & Output 12/01/24 12/02/24 12/03/24 12/04/24 23:59 23:59 23:59 23:59 Intake Total 520 / 520 480 / 480 Output Total 500 / 500 0 / 0 Balance 480 / 480 Weight 112 lb 6.972 oz 115 lb Meds Home Medications and Allergies Home Medications ?Medication ?Instructions ?Recorded ?Confirmed ?Type tiotropium 2.5 mcg-olodaterol 2.5 2 puff inhalation DA JENS 10/11/20 12/03/24 History mcg/actuation mist for inhalation (Stiolto Respimat) atorvastatin 10 mg tablet 10 mg PO HS 09/22/23 5 History levothyroxine 50 mcg tablet 50 mcg PO DAILYDM 09/22/23 12/03/24 History sertraline 25 mg tablet 25 mg PO DAILY 09/22/2307/25 History ipratropium 0.5 mg-albuterol 3 mg 3 ml inhalation Q6HP PRN Shortness 12/03/24 12/03/24 History (2.5 mg base)/3 mL nebulization Of Breath Or Wheezing soln New Prescriptions to Start Prescriptions: Allergies Allergy/AdvReac Type Severity Reaction Status Date / Time Corticosteroids AdvReac Intermediate MAKES Verified 05/30/24 09:10 (Glucocorticoids) PATIENT RED AND FEEL HOT. Assessment and Plan *Assessment and plan (1) Acute respiratory failure with hypoxia and hypercarbia: Status: Acute Category: Medical Code(s): J96.01 - Acute respiratory failure with hypoxia; J96.02 - Acute respiratory failure with hypercapnia (2) COPD exacerbation: Status: Acute Category: Medical Code(s): J44.1 - Chronic obstructive pulmonary disease with (acute) exacerbation Plan NSTEMI - Anginal equivalent dyspnea on exertion with rising serial troponin and CV risk factors - EKG-sinus rhythm with old anterior [place] -Echo shows EF 45 to 50% with moderate hypokinesis of the basal anterolateral LV wall - I discussed patient's workup and findings with her and her daughter in detail. It sounds like she does have COPD exacerbation but could be underlying coronary artery disease especially with significantly elevated troponins and abnormal ECHO. She is agreeable to proceed with [facility]. - Cont ASA, Statin, Lovenox HFmEF - EF 45-50% with moderate hypokinesis of the basal anterolateral LV wall suggestive of ischemia - new dx this admission - ProBNP 37, CTA - neg for effusion/edema - meds pending [facility] results COPD exacerbation - Productive cough, wheeze, 3.5 L/min - Per primary service Multiple lung nodules - Recommend referral to lung nodule clinic Right renal lesion - 1.2 cm, defer to outpatient management CV stable. Further plans pending [facility] results.
--- NOTE | 2024-12-04 13:39 | EXP.DC.SUM ---
General Admission date:: 12/03/24 Discharge date: 12/04/24 HPI HPI HPI: Ms. Contreras is a 64-year-old female with history of COPD, anxiety, hypothyroid who has had a week of worsening dyspnea per her report. States her nebulizers at home just were not working anymore and she became more increasingly short of breath. Came to the ER for evaluation. On arrival was found to be in moderate respiratory distress. Initial blood gas with VBG showing pH 7.27 and PCO2 of 60. Initial labs nonactionable with normal white count, normal kidney function. Initiated on BiPAP due to respiratory distress and placed on continuous nebulizer. Chest imaging obtained with CTA negative for PE or airspace disease. Initial troponin less than 0.01. Medicine consulted due to respiratory distress and need for further management on BiPAP. On my evaluation, patient has shown some response to nebulizers. Tolerating BiPAP. Appears more comfortable. Denies chest pain or chest pressure. Does complain of some muscle tightness in her upper back. No nausea, vomiting, diarrhea. Denies any fevers. Denies any productive cough. Does report that her PCP started her on azithromycin earlier in the week but has not had an improvement or response to this medication. Was given steroids but did not start them. Alert and oriented x 4. Family at bedside. Hospital Course Hospital Course Hospital Course: Ms. Brandi Contreras is a 64-year-old female who presented to the emergency department yesterday with complaints of increasingly worsening shortness of breath. She does have a primary medical history of COPD, anxiety, hypothyroidism. Initial blood gas in the emergency department showed elevated pCO2 of 60, pH 7.27. Initial white count within normal limits, normal kidney function, no anemia noted. She was placed on BiPAP due to feelings of respiratory distress. CTA was negative for PE or airspace disease. Initial troponin was negative at less than 0.01. Concurrent repeat troponins were elevated 1.12, 1.25, 1.38. EKG remained normal no ischemic changes noted, this meets criteria for type II NSTEMI. Cardiology and pulmonology were consulted for further evaluation and recommendations. Hospital medicine was consulted for admission and further management, plan of care was as follows: #Acute hypoxic and hypercarbic respiratory failure #COPD exacerbation ? Repeat VBG has normalized, pH 7.34, pCO2 48.2. Patient removed from the BiPAP and placed on 2 L nasal cannula as needed. Maintaining good saturation on room air. ?Patient received continuous DuoNebs in the ED, continued DuoNebs every 4 hours scheduled and Pulmicort twice daily. Patient has nebulizer and solution at home, instructed for patient to use every 4-6 hours as needed for increased shortness of breath. ? Patient started on prednisone 40 mg daily, will discharge home to complete a 5-day course. ? Comprehensive respiratory panel is negative. Patient assessment reveals lungs CTA, no shortness of breath, no wheezing. ? Leukocytosis noted at discharge, 16.2. Likely in the setting of cardiac stress. Follow-up with PCP in 1 to 2 weeks. ? Patient should continue Stiolto Respimat 2 puffs daily. ? Close follow-up with outpatient pulmonology. ? Patient had 6-minute walk test prior to discharge with respiratory therapy, patient was 94% on room air at rest, with ambulation in the halls patient dropped to 85% on room air, 3 L nasal cannula was applied and patient O2 saturation nathalie to greater than 90%. Patient requires O2 at discharge. ? Per pulmonology she will follow-up in the clinic in 2 to 4 weeks for repeat PFT walk test. Patient also had CT of her chest, showed multiple pulmonary nodules largest being 6 mm in size. Prior low-dose CT from 2019 showed the largest nodule at 3 mm in size. Will follow-up with a 6-month CT chest without contrast on outpatient basis with pulmonology. #NSTEMI, type II ? Patient had LHC today, medical management recommended. Patient did not receive intervention. Patient will be discharged home on Plavix 75 mg and aspirin 81 mg daily. ? Patient currently takes Lipitor 10 mg daily, increased to high intensity statin Lipitor 40 mg daily. Goal LDL less than 55. Current LDL 60.23. ? Patient's blood pressure has remained stable, 108/59 today. Heart rate remained stable at 72. Will hold on blood pressure management medications at this time. ? Kidney function has remained normal, BUN 14, creatinine 0.60. ? Close cardiology follow-up. #Hypothyroidism ? Continue levothyroxine 50 mcg daily. TSH within normal limits, 3.69. #Anxiety ? Patient should continue sertraline 25 mg daily. ? Will start patient on BuSpar 10 mg twice daily for increased anxiety. Total time spent on discharge 32 minutes in counseling, documentation, chart review, and direct care with patient. Exam Data for Last 24 hours Vital signs and Labs for Last 24 Hours: Temp Pulse Resp BP Pulse Ox O2 Del Method O2 Flow Rate 97.8 F 85 18 121/69 97 Nasal Cannula 3.5 12/04/24 12:00 12/04/24 13:35 12/04/24 13:35 12/04/24 13:35 12/04/24 13:35 12/04/24 13:35 12/04/24 13:30 Laboratory Results - last 24 hr 12/03/24 15:10: Troponin I 1.33 H 12/04/24 05:22: WBC 16.2 H D, RBC 4.92, Hgb 13.8, Hct 43.1, MCV 87.6, MCH 28.0, MCHC 32.0, RDW 12.8, Plt Count 222, MPV 11.3 H, Neut % (Auto) 85.2 H, Lymph % (Auto) 7.9 L, [place] % (Auto) 5.7, Eos % (Auto) 0.1, Baso % (Auto) 0.2, Neut # (Auto) 13.8 H, Lymph # (Auto) 1.3, [place] # (Auto) 0.9, Eos # (Auto) 0.0, Baso # (Auto) 0.0, Sodium 132 L, Potassium 3.9, Chloride 101, Carbon Dioxide 26, Anion Gap 8.9, BUN 14 D, Creatinine 0.60, Estimated Creat Clear 46, Estimated GFR 100, Est GFR ( Amer) 121, Glucose 112 H D, Calcium 9.8, Magnesium 2.0, Triglycerides 123, Cholesterol 157, LDL Cholesterol Direct 60.23 L, VLDL Cholesterol 25, HDL Cholesterol 59, Cholesterol/HDL Ratio 2.7 I & O for Last 24 hours: Intake & Output 12/01/24 12/02/24 12/03/24 12/04/24 23:59 23:59 23:59 23:59 Intake Total 520 / 520 480 / 480 Output Total 500 / 500 0 / 0 Balance 480 / 480 Weight 51 kg 52.163 kg Results Data Completed and Pending Labs on day of discharge: Labs from last 24 hours 12/04/24 12/03/24 05:22 15:10 WBC 16.2 H D RBC 4.92 Hgb 13.8 Hct 43.1 MCV 87.6 MCH 28.0 MCHC 32.0 RDW 12.8 Plt Count 222 MPV 11.3 H Neut % (Auto) 85.2 H Lymph % (Auto) 7.9 L [place] % (Auto) 5.7 Eos % (Auto) 0.1 Baso % (Auto) 0.2 Neut # (Auto) 13.8 H Lymph # (Auto) 1.3 [place] # (Auto) 0.9 Eos # (Auto) 0.0 Baso # (Auto) 0.0 Sodium 132 L Potassium 3.9 Chloride 101 Carbon Dioxide 26 Anion Gap 8.9 BUN 14 D Creatinine 0.60 Estimated Creat Clear 46 Estimated GFR 100 Est GFR ( Amer) 121 Glucose 112 H D Calcium 9.8 Magnesium 2.0 Troponin I 1.33 H Triglycerides 123 Cholesterol 157 LDL Cholesterol Direct 60.23 L VLDL Cholesterol 25 HDL Cholesterol 59 Cholesterol/HDL Ratio 2.7 DS: Diagnosis Discharge Diagnosis (1) Acute respiratory failure with hypoxia and hypercarbia: Status: Acute Code(s): J96.01 - Acute respiratory failure with hypoxia; J96.02 - Acute respiratory failure with hypercapnia (2) COPD exacerbation: Status: Acute Code(s): J44.1 - Chronic obstructive pulmonary disease with (acute) exacerbation (3) Multiple lung nodules on CT: Status: Acute Code(s): R91.8 - Other nonspecific abnormal finding of lung field (4) NSTEMI (non-ST elevated myocardial infarction): Status: Acute Code(s): I21.4 - Non-ST elevation (NSTEMI) myocardial infarction (5) Hypothyroidism: Status: Chronic Code(s): E03.9 - Hypothyroidism, unspecified (6) Anxiety: Status: Acute Code(s): F41.9 - Anxiety disorder, unspecified Meds Home Medications and Allergies Home Medications ?Medication ?Instructions ?Recorded ?Confirmed ?Type tiotropium 2.5 mcg-olodaterol 2.5 2 puff inhalation DAILY 10/11/20 12/03/24 History mcg/actuation mist for inhalation (Stiolto Respimat) levothyroxine 50 mcg tablet 50 mcg PO DAILYDM 09/22/23 12/03/24 History sertraline 25 mg tablet 25 mg PO DAILY 09/22/23 12/03/24 History ipratropium 0.5 mg-albuterol 3 mg 3 ml inhalation Q6HP PRN Shortness 12/03/24 12/03/24 History (2.5 mg base)/3 mL nebulization Of Breath Or Wheezing soln aspirin 81 mg tablet,delayed 81 mg PO DAILY 30 days #30 tabs 12/04/24 Rx release atorvastatin 40 mg tablet 40 mg PO HS 30 days #30 tabs 12/04/24 Rx buspirone 10 mg capsule 10 mg PO BID #60 caps 12/04/24 Rx clopidogrel 75 mg tablet (Plavix) 75 mg PO DAILY #30 tabs 12/04/24 Rx prednisone 20 mg tablet 40 mg (2 x 20 mg) PO DAILY #4 tabs 12/04/24 Rx New Prescriptions to Start Prescriptions: aspirin Melissa Gipson atorvastatin Brandan,Melissa buspirone Melissa Gipson clopidogrel [Plavix] Brandan,Melissa prednisone Melissa Gipson Allergies Allergy/AdvReac Type Severity Reaction Status Date / Time Corticosteroids AdvReac Intermediate MAKES Verified 05/30/24 09:10 (Glucocorticoids) PATIENT RED AND FEEL HOT. Discharge Plan Disposition Patient Disposition: Home, Self-Care Condition: Fair Follow up Plan Follow up with: Jennifer Euceda APRN [Nurse Practitioner, Cardiology] - Enter time for follow up Lizette Gallegos APRN [Primary Care Provider, Medical] - Enter time for follow up Leslie Berry MD [Physician, Pulmonology] - Enter time for follow up Prescriptions/Medication Reconciliation: New atorvastatin 40 mg Tablet 40 mg PO HS 30 Days Qty: 30 0RF aspirin 81 mg Tablet,Delayed Release (Dr/Ec) 81 mg PO DAILY 30 Days Qty: 30 0RF clopidogrel [Plavix] 75 mg tablet 75 mg PO DAILY Qty: 30 0RF prednisone 20 mg tablet 40 mg PO DAILY Qty: 4 0RF buspirone 10 mg capsule 10 mg PO BID Qty: 60 0RF Continued Stiolto Respimat 2.5-2.5 mcg/actuation mist 2 puff INHALATION DAILY levothyroxine 50 mcg tablet 50 mcg PO DAILYDM sertraline 25 mg tablet 25 mg PO DAILY ipratropium-albuterol 0.5 mg-3 mg(2.5 mg base)/3 mL solution for nebulization 3 ml INHALATION Q6HP PRN (Reason: Shortness Of Breath Or Wheezing) Discontinued atorvastatin 10 mg tablet 10 mg PO HS Other Ambulatory Orders: Home Medical Equipment (Routine) Location: None Selected Ordered By: Melissa Gipson Home Medical Equipment (Routine) Location: None Selected Ordered By: Melissa Gipson Home Medical Equipment (Routine) Location: None Selected Ordered By: Melissa Gipson Problem Reconciliation Problems Reviewed?: Yes Patient Discharge Instructions ACTIVITY: Continue current activity and No heavy lifting DIET: continue same diet Patient Instructions: DI for Heart Attack, DI for Chronic Obstructive Pulmonary Disease, DI for Gastroesophageal Reflux Disease (GERD), DI for Respiratory Failure, Stop Light COPD Print Language: Malagasy Providers Primary Care Provider: Lizette Gallegos Admit Provider: Cezar Bustamante Attending Provider: Cezar Bustamante
[2024-12-04] MEDS: IOPAMIDOL-370 (76%);100ML BOTTLE 60 ML IV (15:27)
[2024-12-04] MEDS: IRBESARTAN 75MG TABLET 75 MG PO (15:51)
--- NOTE | 2024-12-05 10:09 | SW/DCPLANNER ---
Spoke with patient on the phone. Patient stated that she is aware of her upcoming appointments. Patient stated that she was able to get her new medicine picked up from [facility]. Patient stated that she has no concerns or questions at this time. Anjelica Kathleen
== END 2024-12-04 19:35 | disposition home or self-care (01) ==
LOC: ER 02:48 → 2ND 21:10 → ICU 12-04 14:51
PROVIDERS: Internal Medicine; Admitting Provider Internal Medicine Adolescent Medicine; Emergency Provider Emergency Medicine; PCP Nurse Practitioner; Visit Provider Internal Medicine Adolescent Medicine
PROC: 4A023N7 Measurement of Cardiac Sampling and Pressure, Left Heart, Percutaneous Approach (ICD-10-PCS; CPT 93452; principal; 2024-12-04 12:00)
DX: J96.01 Acute respiratory failure with hypoxia (principal); J96.02 Acute respiratory failure with hypercapnia; J44.1 Chronic obstructive pulmonary disease with (acute) exacerbation; E03.9 Hypothyroidism, unspecified; F41.9 Anxiety disorder, unspecified; N28.9 Disorder of kidney and ureter, unspecified; K21.9 Gastro-esophageal reflux disease without esophagitis; J43.2 Centrilobular emphysema; R79.89 Other specified abnormal findings of blood chemistry; I25.119 Atherosclerotic heart disease of native coronary artery with unspecified angina pectoris; I50.20 Unspecified systolic (congestive) heart failure; I25.2 Old myocardial infarction; E78.5 Hyperlipidemia, unspecified; R91.8 Other nonspecific abnormal finding of lung field; R00.0 Tachycardia, unspecified; Z99.89 Dependence on other enabling machines and devices; Z87.891 Personal history of nicotine dependence; Z88.8 Allergy status to other drugs, medicaments and biological substances; Z79.890 Hormone replacement therapy; Z79.899 Other long term (current) drug therapy
CPT/HCPCS: 0223U; 36415; 71045; 71275; 80048; 80053; 80061; 82803; 83735; 83880; 84443; 84484; 85025; 85610; 86803; 87389; 87633; 93005; 93306; 93458; 94618; 94640; 94761; 96361; 96374; 96375; 96376; 99152; 99285; C1725; C1769; G0378; J1200; J1644; J1650; J2003; J2250; J2919; J3010; J7040; Q9967

== ENCOUNTER 2024-12-26 04:19 | Emergency (ER) | payer MEDICARE, SELFPAY ==
[2024-12-26] VITALS (11 sets, daily range): BP systolic 130–165; BP diastolic 55–79; PULSE 57–82; RESP 10–16; TEMP 36.7–36.8; O2SAT 94–98; BMI 20.3
--- NOTE | 2024-12-26 04:17 | ECG_ITS ---
APPROVED REPORT Exam: Resting ECG HR:78 bpm ECG Measurements Heart Rate 78 AXES MO 163 P 88 QRSd 79 QRS 86 QT 335 T 42 QTc 369 Conclusion SINUS RHYTHM NONSPECIFIC T-WAVE ABNORMALITY BORDERLINE ECG UNCONFIRMED REPORT Normal sinus rhythm. No ST elevation or depression. QTc of 369 Electronically signed by : GILES MOON, 12/26/2024 16:15:40
--- NOTE | 2024-12-26 04:26 | XR_ITS ---
PROCEDURE INFORMATION: Exam: XR Chest Exam date and time: 12/26/2024 4:36 AM Age: 64 years old Clinical indication: Pain; Chest pressure; Additional info: Cp TECHNIQUE: Imaging protocol: Radiologic exam of the chest. Views: 1 view. COMPARISON: CR XR CHEST PORTABLE 12/03/2024 2:26 AM FINDINGS: Lungs: Unremarkable. No consolidation. Pleural spaces: Unremarkable. No pleural effusion. No pneumothorax. Heart/Mediastinum: Unremarkable. No cardiomegaly. Bones/joints: Unremarkable. IMPRESSION: No acute findings.
--- NOTE | 2024-12-26 04:28 | HMH.EDGENADL ---
Discharge Plan Disposition Patient Disposition: Home, Self-Care Prescriptions Prescriptions: No Action Stiolto Respimat 2.5-2.5 mcg/actuation mist 2 puff INHALATION DAILY levothyroxine 50 mcg tablet 50 mcg PO DAILYDM sertraline 25 mg tablet 25 mg PO DAILY metoprolol succinate 25 mg tablet extended release 24 hr 25 mg PO DAILY Qty: 90 3RF ipratropium-albuterol 0.5 mg-3 mg(2.5 mg base)/3 mL solution for nebulization 3 ml INHALATION Q6HP PRN (Reason: Shortness Of Breath Or Wheezing) atorvastatin 40 mg Tablet 40 mg PO HS 30 Days Qty: 30 0RF aspirin 81 mg Tablet,Delayed Release (Dr/Ec) 81 mg PO DAILY 30 Days Qty: 30 0RF clopidogrel [Plavix] 75 mg tablet 75 mg PO DAILY Qty: 30 0RF prednisone 20 mg tablet 40 mg PO DAILY Qty: 4 0RF buspirone 10 mg capsule 10 mg PO BID Qty: 60 0RF Referrals Follow up/Referrals: Provider,Referral, MD [Primary Care Provider, Medical] - See instructions Activity Restrictions/Add. Instructions Additional Instructions/Restrictions: Follow-up with Dr. Wiggins's office as scheduled. If you develop any new or worsening symptoms, such as worsening chest pain, shortness of breath, or if you become concerned for your health for any reason, return to the emergency department for evaluation Clinical Impressions Clinical Impression: Chest pain Print Language Print Language: Swedish Discharge ED Provider: Corby Coyle Adult HPI <Cheikh Chairez MD - Last Filed: 12/26/24 07:23> General Chief complaint: Chest Pain Stated complaint: Chest Pain Time Seen by Provider: 12/26/24 04:26 Mode of Arrival: Ambulatory Source of Information: Patient and Relative Description of Symptoms (Recalled from ER Triage Doc. by RN): pt presents to the Ed d/t complaints of chest pain staring around 0300. pt states it woke her up from sleep. states only 1/10 pain. pt states she felt weak in both arms. pt had heart attack per patient x 1 month ago. pt is alert and complains of pain more near right side of chest. History of Present Illness HPI narrative: 4-year-old female with history COPD, coronary artery disease, NSTEMI last month presents for chest pain. She reports that it woke her from sleep. Was right-sided. She felt kind of weak in both arms. The pain was only 1 out of 10. She reports currently the chest pain was gone completely prior to arrival. Denies any shortness of breath. She was admitted last month for an NSTEMI. She had a coronary cath with 40% mid LAD stenosis, no stent was placed, recommend medical management. Related Data Home Medications ?Medication ?Instructions ?Recorded ?Confirmed tiotropium 2.5 mcg-olodaterol 2.5 2 puff inhalation DAILY 10/11/20 12/07/24 mcg/actuation mist for inhalation (Stiolto Respimat) levothyroxine 50 mcg tablet 50 mcg PO DAILYDM 09/22/23 12/07/24 sertraline 25 mg tablet 25 mg PO DAILY 09/22/23 12/07/24 ipratropium 0.5 mg-albuterol 3 mg 3 ml inhalation Q6HP PRN Shortness 12/03/24 12/07/24 (2.5 mg base)/3 mL nebulization Of Breath Or Wheezing soln Previous Rx's ?Medication ?Instructions ?Recorded aspirin 81 mg tablet,delayed 81 mg PO DAILY 30 days #30 tabs 12/04/24 release atorvastatin 40 mg tablet 40 mg PO HS 30 days #30 tabs 12/04/24 buspirone 10 mg capsule 10 mg PO BID #60 caps 12/04/24 clopidogrel 75 mg tablet (Plavix) 75 mg PO DAILY #30 tabs 12/04/24 prednisone 20 mg tablet 40 mg (2 x 20 mg) PO DAILY #4 tabs 12/04/24 metoprolol succinate 25 mg 25 mg PO DAILY #90 tabs 12/07/24 tablet,extended release 24 hr Allergies Allergy/AdvReac Type Severity Reaction Status Date / Time Corticosteroids AdvReac Intermediate MAKES Verified 12/07/24 10:41 (Glucocorticoids) PATIENT RED AND FEEL HOT. [facility] <Cheikh Chairez MD - Last Filed: 12/26/24 07:23> [facility] Disclaimer: The information contained in this section may have been updated after the patient was seen, as this information can be updated by other users. Medical History (Updated 12/26/24 @ 07:35 by Corby Coyle MD) Acute respiratory failure with hypoxia and hypercarbia HFrEF (heart failure with reduced ejection fraction) Fatigue Hyperlipidemia Renal lesion CAD (coronary artery disease) Multiple lung nodules on CT GERD (gastroesophageal reflux disease) Hypothyroidism COPD (chronic obstructive pulmonary disease) Lump on neck Surgical History History of cardiac cath History of thyroid surgery Hx of section Family History Sister Cancer Brother Cancer Heart disease Mother Heart disease Diabetes Social History Smoking Status: Never smoker alcohol intake: never current occupational status: other Travel in the last 8 weeks?: None Have you lived/traveled outside US in past 30 days?: No Contact w/someone who lives/traveled outside US past 30 days?: No Exposure to someone with infectious disease in past 14 days?: No Do you have a fever (greater than 100.4 F or 38 C)?: No Have you tested positive for COVID-19?: No Exposed to someone with COVID-19 in past 14 days?: No Do you have a sore throat?: No Do you have a cough?: No Do you have any weakness?: No Do you have any diarrhea?: No Are you experiencing any unusual bleeding?: No Do you have any muscle aches/pain?: No Do you have any abdominal pain?: No Are you experiencing loss of taste or smell?: No Other Medical History Have you received the Flu Vaccine for this season: No Have you received the Pneumonia Vaccine: Yes <Cheikh Chairez MD - Last Filed: 12/26/24 07:23> ROS Obtained: Yes All systems reviewed & no additional complaints except as documented Physical Exam <Cheikh Chairez MD - Last Filed: 12/26/24 07:23> General General appearance: alert and in no apparent distress Head Head exam: atraumatic and normocephalic Eye Eye exam: Present normal appearance, PERRL and EOMI ENT ENT exam: Present normal oropharynx and normal external ear exam Neck Neck exam: Present normal inspection and full ROM Chest Chest inspection: Present normal inspection and symmetric chest wall rise; Absent tenderness Respiratory Respiratory exam: Present normal lung sounds bilaterally; Absent respiratory distress Cardiovascular Cardiovascular exam: Present regular rate and normal rhythm Abdominal Exam Abdominal exam: Present soft; Absent distention, tenderness or guarding Extremities Exam Extremities exam: Present normal inspection; Absent edema or joint swelling Back Exam Back exam: Present normal inspection; Absent tenderness Neurological Exam Neurological exam: Present alert and oriented X3; Absent motor sensory deficit Psychiatric Psychiatric exam: Present normal affect and normal mood Skin Skin exam: Present warm, dry and normal color Lymphatic Lymphatic Findings: no adenopathy Medical Decision Making <Cheikh Chairez MD - Last Filed: 12/26/24 07:23> Medical Records Medical records reviewed: Yes I reviewed the patient's medical records. Screening: Per USPSTF and CDC recommendations, given the prevalence of disease in our region, it is our hospital?s policy to screen for HIV and viral Hepatitis for all patients aged 18 and over and those with ongoing risk factors. Giovanni Inquiry Pt receiving controlled substance: No Giovanni was queried for this patient: No Vital Signs: 12/26/24 04:20 12/26/24 04:30 12/26/24 05:00 Temperature 98.1 F Temperature Source Oral Pulse Rate 70 61 Pulse Rate [Right Radial] 82 Respiratory Rate 16 11 L 11 L Blood Pressure 163/70 H 156/65 H Blood Pressure [Right Arm] 165/79 H Blood Pressure Mean [Right Arm] 107 Blood Pressure Source Blood Pressure Position Blood Pressure Position [Right Arm] Supine 02 Sat by Pulse Oximetry 98 96 97 Oxygen Delivery Method Room Air 12/26/24 05:24 12/26/24 05:30 12/26/24 06:00 Temperature Temperature Source Pulse Rate 61 58 L 59 L Pulse Rate [Right Radial] Respiratory Rate 12 11 L 11 L Blood Pressure 157/76 H 141/68 H 138/69 Blood Pressure [Right Arm] Blood Pressure Mean [Right Arm] Blood Pressure Source Blood Pressure Position Blood Pressure Position [Right Arm] 02 Sat by Pulse Oximetry 95 94 L 94 L Oxygen Delivery Method 12/26/24 06:30 12/26/24 07:00 12/26/24 07:00 Temperature Temperature Source Pulse Rate 58 L 59 L 57 L Pulse Rate [Right Radial] Respiratory Rate 11 L 10 L 12 Blood Pressure 144/70 H 131/75 131/75 Blood Pressure [Right Arm] Blood Pressure Mean [Right Arm] Blood Pressure Source Automatic Cuff Blood Pressure Position Supine Blood Pressure Position [Right Arm] 02 Sat by Pulse Oximetry 96 95 95 Oxygen Delivery Method Room Air 12/26/24 07:30 12/26/24 07:30 12/26/24 08:00 Temperature Temperature Source Pulse Rate 61 60 59 L Pulse Rate [Right Radial] Respiratory Rate 14 13 13 Blood Pressure 132/64 132/64 130/55 L Blood Pressure [Right Arm] Blood Pressure Mean [Right Arm] Blood Pressure Source Automatic Cuff Blood Pressure Position Supine Blood Pressure Position [Right Arm] 02 Sat by Pulse Oximetry 96 96 96 Oxygen Delivery Method Room Air 12/26/24 08:27 Temperature 98.3 F Temperature Source Oral Pulse Rate 63 Pulse Rate [Right Radial] Respiratory Rate 16 Blood Pressure 130/55 L Blood Pressure [Right Arm] Blood Pressure Mean [Right Arm] Blood Pressure Source Automatic Cuff Blood Pressure Position Supine Blood Pressure Position [Right Arm] 02 Sat by Pulse Oximetry Oxygen Delivery Method Room Air Lab Data Lab results reviewed: Yes I reviewed the patient's lab results. Lab Results 12/26/24 04:22: WBC 7.2, RBC 4.58, Hgb 13.6, Hct 40.6, MCV 88.6, MCH 29.7, MCHC 33.5, RDW 13.2, Plt Count 227, MPV 10.6 H, Neut % (Auto) 49.9, Lymph % (Auto) 27.0, [place] % (Auto) 7.3, Eos % (Auto) 14.3 H, Baso % (Auto) 1.1, Neut # (Auto) 3.6, Lymph # (Auto) 2.0, [place] # (Auto) 0.5, Eos # (Auto) 1.0 H, Baso # (Auto) 0.1, D-Dimer 0.61 H, Sodium 139, Potassium 4.1, Chloride 104, Carbon Dioxide 27, Anion Gap 12.1, BUN 12, Creatinine 0.90, Estimated Creat Clear 46, Estimated GFR 63, Est GFR ( Amer) 76, Glucose 94, Calcium 9.2, Total Bilirubin 0.5, AST 31, ALT 21, Alkaline Phosphatase 116, Troponin I < 0.01, Total Protein 6.3, Albumin 4.2, Globulin 2.1, Albumin/Globulin Ratio 2.0 H 12/26/24 07:21: Troponin I < 0.01 12/26/24 04:22 12/26/24 04:22 Orders (Tests/Meds): ED MEDICATIONS Discontinued Medications Generic Name Dose Route Start Last Admin Trade Name Queenie PRN Reason Stop Dose Admin Acetaminophen 1,000 mg 12/26/24 04:26 12/26/24 04:30 Acetaminophen 500mg Tab PO 12/26/24 04:27 1,000 mg ONCE ONE Administration Aspirin 324 mg 12/26/24 04:26 12/26/24 04:30 Aspirin 81mg Chewable Tablet PO 12/26/24 04:27 324 mg ONCE ONE Administration ORDERS Category Date Time Status CXR --portable [XR chest portable] Stat Exams 12/26/24 04:26 Completed CBC w/Auto Diff [Complete Blood Count Auto Diff] Stat Lab 12/26/24 04:22 Completed CMP [Comprehensive Metabolic Panel] Stat Lab 12/26/24 04:22 Completed D-Dimer Stat Lab 12/26/24 04:22 Completed Troponin I Q3H Lab 12/26/24 04:22 Completed Troponin I Q3H Lab 12/26/24 07:21 Completed ECG Data Tracing #1: I reviewed this ECG and interpreted as documented below: Sinus rhythm, rate of 78, no significant ST changes, no evidence of arrhythmia ECG initial impression date: 12/26/24 ECG initial impression time: 04:17 HEART Score History (anamnesis): Slightly suspicious ECG: Normal Age: >65 years Risk factors: Atherosclerosis history Troponin: </= normal limit HEART Score: 4 Medical Decision Narrative: 64-year-old female with history of COPD, CAD, NSTEMI presents for brief episode of right-sided chest pain that awoke her from sleep. History was obtained via interactive discussion with patient, family, chart review. On arrival, patient is [afebrile, hemodynamically stable, satting appropriately, alert, oriented x4, GCS 15], moving all extremities spontaneously. Full physical exam performed and significant for no significant physical exam abnormalities Differential includes but is not limited to ACS, PE, musculoskeletal pain, esophageal pathology Patient was given aspirin, Tylenol for symptomatic management and correction of underlying abnormalities. Workup initiated including CBC CMP troponin EKG D-dimer chest x-ray. On re-evaluation, patient [remains afebrile, HD stable.] Laboratory workup independently interpreted by me and significant for negative D-dimer by years criteria. Negative initial troponin.. Imaging independently interpreted by me and significant for clear lungs bilaterally without focal opacity. See radiology read for full review of final results. Patient was placed in ED observation status for serial cardiac enzymes. AT this time care handed off to oncoming physician. <Corby Coyle MD - Last Filed: 12/26/24 08:33> Vital Signs: 12/26/24 04:20 12/26/24 04:30 12/26/24 05:00 Temperature 98.1 F Temperature Source Oral Pulse Rate 70 61 Pulse Rate [Right Radial] 82 Respiratory Rate 16 11 L 11 L Blood Pressure 163/70 H 156/65 H Blood Pressure [Right Arm] 165/79 H Blood Pressure Mean [Right Arm] 107 Blood Pressure Source Blood Pressure Position Blood Pressure Position [Right Arm] Supine 02 Sat by Pulse Oximetry 98 96 97 Oxygen Delivery Method Room Air 12/26/24 05:24 12/26/24 05:30 12/26/24 06:00 Temperature Temperature Source Pulse Rate 61 58 L 59 L Pulse Rate [Right Radial] Respiratory Rate 12 11 L 11 L Blood Pressure 157/76 H 141/68 H 138/69 Blood Pressure [Right Arm] Blood Pressure Mean [Right Arm] Blood Pressure Source Blood Pressure Position Blood Pressure Position [Right Arm] 02 Sat by Pulse Oximetry 95 94 L 94 L Oxygen Delivery Method 12/26/24 06:30 12/26/24 07:00 12/26/24 07:00 Temperature Temperature Source Pulse Rate 58 L 59 L 57 L Pulse Rate [Right Radial] Respiratory Rate 11 L 10 L 12 Blood Pressure 144/70 H 131/75 131/75 Blood Pressure [Right Arm] Blood Pressure Mean [Right Arm] Blood Pressure Source Automatic Cuff Blood Pressure Position Supine Blood Pressure Position [Right Arm] 02 Sat by Pulse Oximetry 96 95 95 Oxygen Delivery Method Room Air 12/26/24 07:30 12/26/24 07:30 12/26/24 08:00 Temperature Temperature Source Pulse Rate 61 60 59 L Pulse Rate [Right Radial] Respiratory Rate 14 13 13 Blood Pressure 132/64 132/64 130/55 L Blood Pressure [Right Arm] Blood Pressure Mean [Right Arm] Blood Pressure Source Automatic Cuff Blood Pressure Position Supine Blood Pressure Position [Right Arm] 02 Sat by Pulse Oximetry 96 96 96 Oxygen Delivery Method Room Air 12/26/24 08:27 Temperature 98.3 F Temperature Source Oral Pulse Rate 63 Pulse Rate [Right Radial] Respiratory Rate 16 Blood Pressure 130/55 L Blood Pressure [Right Arm] Blood Pressure Mean [Right Arm] Blood Pressure Source Automatic Cuff Blood Pressure Position Supine Blood Pressure Position [Right Arm] 02 Sat by Pulse Oximetry Oxygen Delivery Method Room Air Lab Data Lab Results 12/26/24 04:22: WBC 7.2, RBC 4.58, Hgb 13.6, Hct 40.6, MCV 88.6, MCH 29.7, MCHC 33.5, RDW 13.2, Plt Count 227, MPV 10.6 H, Neut % (Auto) 49.9, Lymph % (Auto) 27.0, [place] % (Auto) 7.3, Eos % (Auto) 14.3 H, Baso % (Auto) 1.1, Neut # (Auto) 3.6, Lymph # (Auto) 2.0, [place] # (Auto) 0.5, Eos # (Auto) 1.0 H, Baso # (Auto) 0.1, D-Dimer 0.61 H, Sodium 139, Potassium 4.1, Chloride 104, Carbon Dioxide 27, Anion Gap 12.1, BUN 12, Creatinine 0.90, Estimated Creat Clear 46, Estimated GFR 63, Est GFR ( Amer) 76, Glucose 94, Calcium 9.2, Total Bilirubin 0.5, AST 31, ALT 21, Alkaline Phosphatase 116, Troponin I < 0.01, Total Protein 6.3, Albumin 4.2, Globulin 2.1, Albumin/Globulin Ratio 2.0 H 12/26/24 07:21: Troponin I < 0.01 Orders (Tests/Meds): ED MEDICATIONS Discontinued Medications Generic Name Dose Route Start Last Admin Trade Name Freq PRN Reason Stop Dose Admin Acetaminophen 1,000 mg 12/26/24 04:26 12/26/24 04:30 Acetaminophen 500mg Tab PO 12/26/24 04:27 1,000 mg ONCE ONE Administration Aspirin 324 mg 12/26/24 04:26 12/26/24 04:30 Aspirin 81mg Chewable Tablet PO 12/26/24 04:27 324 mg ONCE ONE Administration ORDERS Category Date Time Status CXR --portable [XR chest portable] Stat Exams 12/26/24 04:26 Completed CBC w/Auto Diff [Complete Blood Count Auto Diff] Stat Lab 12/26/24 04:22 Completed CMP [Comprehensive Metabolic Panel] Stat Lab 12/26/24 04:22 Completed D-Dimer Stat Lab 12/26/24 04:22 Completed Troponin I Q3H Lab 12/26/24 04:22 Completed Troponin I Q3H Lab 12/26/24 07:21 Completed HEART Score HEART Score: 4 Medical Decision Narrative: 64-year-old female with history of COPD, CAD, NSTEMI presents for brief episode of right-sided chest pain that awoke her from sleep. History was obtained via interactive discussion with patient, family, chart review. On arrival, patient is [afebrile, hemodynamically stable, satting appropriately, alert, oriented x4, GCS 15], moving all extremities spontaneously. Full physical exam performed and significant for no significant physical exam abnormalities Differential includes but is not limited to ACS, PE, musculoskeletal pain, esophageal pathology Patient was given aspirin, Tylenol for symptomatic management and correction of underlying abnormalities. Workup initiated including CBC CMP troponin EKG D-dimer chest x-ray. On re-evaluation, patient [remains afebrile, HD stable.] Laboratory workup independently interpreted by me and significant for negative D-dimer by years criteria. Negative initial troponin.. Imaging independently interpreted by me and significant for clear lungs bilaterally without focal opacity. See radiology read for full review of final results. Patient was placed in ED observation status for serial cardiac enzymes. AT this time care handed off to oncoming physician. Corby Coyle MD I assumed care of this patient at 0720 pending repeat troponin. Repeat troponin was also negative. Given this, is felt the patient is appropriate discharge at this time recommended outpatient follow-up with cardiology. Family states that they have been to call the retail sales associate seasonal today for further recommendations regarding follow-up. Return precautions were given. All questions were answered. She demonstrated understanding and was in agreement this plan. She was then discharged from the emergency department in stable condition. Procedures <Cheikh Chairez MD - Last Filed: 12/26/24 07:23> Risk/Benefits of Procedure(s) Were Explained: Yes Critical Care <Cheikh Chairez MD - Last Filed: 12/26/24 07:23> Critical Care Time Critical Care Time: No
--- OUTSIDE RECORDS SUMMARY | 2024-12-26 04:29 | XMS_ITS | Clinical Summary ---
Author Organization [facility] Address [address] [place] [address] Phone Care Team Providers Care Survey Director Name Role Phone Vance GUTIERREZ, Lewis Amezquita [phone] Conditions or Problems Problem Name Problem Code Onset Date Status Entry Date Provider Comment Standard Description Annotate C. 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 DIFICID 200 MG TABS Take one (1) tablet by mouth twice a day for 10 days 06/19 FIDAXOMICIN [id number] Lewis Woodard MD. VANCOCIN HCL 125 MG ORAL CAPSULE taper 05/23 VANCOMYCIN HCL [id number] Stef Harry VANCOCIN HCL 125 MG ORAL CAPSULE taper 05/23 VANCOMYCIN HCL [id number] Lewis Woodard MD. STIOLTO RESPIMAT 2.5-2.5 MCG/ACT AERS Inhale 1-2 puffs as needed 05/23 TIOTROPIUM BROMIDE-OLODATEROL [id number] Lewis Woodard MD. ACIDOPHILUS PROBIOTIC 10 MG CAPS Take 1 tablet by mouth daily 05/23 LACTOBACILLUS [id number] Lewis Woodard MD. ESTRADIOL 1 MG TABS Take 1 tablet by mouth daily 05/23 ESTRADIOL [id number] Lewis Woodard MD. LEVO-T 75 MCG TABS Take 1 tablet by mouth daily 05/23 LEVOTHYROXINE SODIUM [id number] Lewis Woodard MD. MEDROXYPROGESTERONE ACETATE 2.5 MG TABS Take 1 tablet by mouth daily 05/23 MEDROXYPROGESTERONE ACETATE [id number] Lewis Woodard MD. Medications Administered No information available. Allergies, Adverse Reactions, Alerts No information available. Results Date Name Value Unit Range Flag Description Office Visit: Room 12 MEDS REVIEW Done Documenta tion of current medications (procedure) ORALTOBACUSE Never Tobacco smoking status SMOK STATUS Never smoker Toba account coordinator smoking status Plan of Care No information available. Procedures No information available. Vital Signs Date Name Value Unit Description BMI (Body Mass Index) 23.24 kg/m2 Bod y Mass Index (Ratio) Body Temperature 98.0 [degF] temperat ure E&M BP Diastolic 68 mm[Hg] blood pressu re, diastolic BP Systolic 126 mm[Hg] blood pressur e, systolic Heart Rate 80 /min pulse rate Respiratory Rate 14 /min respirat ory rate E&M Weight Measured 119 [lb_av] weight E& M Weight Measured 119 [lb_av] weight E& M Height 60 [in_us] height E&M Immunizations No information available. Advance Directives Directive Description Start Date NO ADVANCED DIRECTIVES AT THIS TIME 2019
[2024-12-26] MEDS: ASPIRIN 81MG CHEWABLE TABLET 324 MG PO (04:30)
[2024-12-26] MEDS: ACETAMINOPHEN 500MG TAB 1000 MG PO (04:30)
[2024-12-26 04:35] LABS: Hematocrit 40.6 % (37.0-47.0); Hemoglobin 13.6 g/dL (12.2-16.2); Immature Granulocytes % 0.4 %; Mean Corpuscular HGB Conc 33.5 g/dL (31.8-35.4); Mean Corpuscular Hemoglobin 29.7 pg (27.0-31.2); Mean Corpuscular Volume 88.6 fl (81-99); Nucleated Red Blood Cells % 0 %; Platelet Count 227 K/mm3 (142-424); Red Blood Count 4.58 M/mm3 (4.20-5.40); Red Cell Distribution Width-SD 42.8 fL; White Blood Count 7.2 K/mm3 (4.8-10.8)
[2024-12-26 04:42] LABS: Alanine Aminotransferase 21 U/L (12-78); Albumin Level 4.2 g/dl (3.5-5.0); Albumin/Globulin Ratio 2.0 (1.1-1.8); Alkaline Phosphatase 116 U/L (38-126); Anion Gap 12.1 mEq/L (5-15); Aspartate Amino Transferase 31 U/L (14-36); Bilirubin,Total 0.5 mg/dl (0.2-1.3); Blood Urea Nitrogen 12 mg/dl (7-17); Calcium 9.2 mg/dl (8.4-10.2); Carbon Dioxide 27 mmol/L (22.0-30.0); Chloride 104 mmol/L (98-107); Creatinine Clearance Estimated 46 mL/min (50-200); Creatinine,Serum 0.90 mg/dl (0.52-1.04); Estimated Glomerular Filt Rate 63 ml/min (>60); GFR (African American) 76 ML/MIN (>60); Globulin 2.1 g/dL (1.3-3.2); Glucose 94 mg/dl (74-100); Potassium 4.1 mmoL/L (3.5-5.1); Sodium 139 mmol/L (136-145); Total Protein,Serum 6.3 g/dl (6.3-8.2)
[2024-12-26 04:47] LABS: D-Dimer 0.61 ug/mL (0.0-0.5)
[2024-12-26 05:00] LABS: Troponin I < 0.01 ng/ml (0.00-0.034)
--- NOTE | 2024-12-26 07:23 | PC.NURSE ---
second troponin drawn from line and sent to lab.
--- NOTE | 2024-12-26 07:24 | PC.NURSE ---
call made to lab for second troponin being sent
[2024-12-26 08:17] LABS: Troponin I < 0.01 ng/ml (0.00-0.034)
== END 2024-12-26 08:31 | disposition home or self-care (01) ==
PROVIDERS: Emergency Medicine; Emergency Provider Student in an Organized Health Care Education/Training Program
DX: R07.89 Other chest pain (principal); I25.10 Atherosclerotic heart disease of native coronary artery without angina pectoris; J44.1 Chronic obstructive pulmonary disease with (acute) exacerbation; J43.9 Emphysema, unspecified; E78.5 Hyperlipidemia, unspecified; K21.9 Gastro-esophageal reflux disease without esophagitis
CPT/HCPCS: 71045; 80053; 84484; 85025; 85378; 93005; 99284; 99285

== ENCOUNTER 2024-12-27 07:41 | Outpatient (CLI) | payer MEDICARE, SELFPAY ==
--- OUTSIDE RECORDS SUMMARY | 2024-12-27 07:42 | XMS_ITS | Clinical Summary ---
Author Organization [facility] Address [address] [place] [address] Phone Care Team Providers Care Risk Professional Name Role Phone Vance GUTIERREZ, Lewis Amezquita Conditions or Problems Problem Name Problem Code Onset Date Status Entry Date Provider Comment Standard Description Annotate C. Difficile colitis, recurrent [id number] (SNOMED CT) Active Cony Ceferino Enterocolitis Medications Medication Instructions Start Date Stop Date Generic Name ND Provider DIFICID 200 MG TABS Take one (1) tablet by mouth twice a day for 10 days 06/19 FIDAXOMICIN [id number] Tierra Marquez VANCOCIN HCL 125 MG ORAL CAPSULE Take one (1) tablet by mouth four times a day for 14 days 06/19 VANCOMYCIN HCL [id number] Lewis Woodard MD. DIFICID 200 MG TABS Take one (1) tablet by mouth twice a day for 10 days 06/19 FIDAXOMICIN [id number] Lewis Woodard MD. VANCOCIN HCL 125 MG ORAL CAPSULE taper 05/23 VANCOMYCIN HCL [id number] Stef Harry VANCOCIN HCL 125 MG ORAL CAPSULE taper 05/23 VANCOMYCIN HCL [id number] Lewis Woodard MD. STIOLTO RESPIMAT 2.5-2.5 MCG/ACT AERS Inhale 1-2 puffs as needed 05/23 TIOTROPIUM BROMIDE-OLODATEROL [id number] Lewis Woodard MD. ACIDOPHILUS PROBIOTIC 10 MG CAPS Take 1 tablet by mouth daily 05/23 LACTOBACILLUS [id number] Lewis Woodard MD. ESTRADIOL 1 MG TABS Take 1 tablet by mouth daily 05/23 ESTRADIOL [id number] Lewis Woodard MD. LEVO-T 75 MCG TABS Take 1 tablet by mouth daily 05/23 LEVOTHYROXINE SODIUM [id number] Lewis Woodard MD. MEDROXYPROGESTERONE ACETATE 2.5 MG TABS Take 1 tablet by mouth daily 05/23 MEDROXYPROGESTERONE ACETATE [id number] Lewis Woodard MD. Medications Administered No information available. Allergies, Adverse Reactions, Alerts No information available. Results Date Name Value Unit Range Flag Description Office Visit: Room 12 MEDS REVIEW Done Documenta tion of current medications (procedure) ORALTOBACUSE Never Tobacco smoking status SMOK STATUS Never smoker Toba network account manager smoking status Plan of Care No information [...]
--- NOTE | 2024-12-27 08:00 | MR_ITS ---
FINAL REPORT TECHNIQUE: Multiplanar and multisequence imaging was obtained before and after the intravenous injection of gadolinium contrast. CLINICAL HISTORY: renal lesion COMPARISON: None available. FINDINGS: The liver is homogeneous, without focal hepatic lesion. The gallbladder is present. The spleen is normal in size and signal intensity. The adrenal glands and pancreas are without acute abnormality. There is no hydronephrosis or renal mass. The kidneys are unremarkable. No renal masses identified on this exam. Limited evaluation of the GI tract is without acute abnormality. There is no abdominal lymphadenopathy or ascites. Postcontrast images reveal no abnormal enhancement. IMPRESSION: No acute abnormality. No abnormal enhancement. No renal mass identified on this exam. The CT chest was unavailable for direct comparison. Authenticated and ERN
[2024-12-27] MEDS: SODIUM CHLORIDE 0.9% 10ML SYR (RAD ONLY) 10 ML IV (08:25)
[2024-12-27] MEDS: 0.9 % SODIUM CHLORIDE 50 ML VIAL 25 ML IV (08:25)
[2024-12-27] MEDS: GADOTERIDOL INJ 20ML SYRINGE 11 ML IV (08:25)
== END 2024-12-27 23:59 | disposition home or self-care (01) ==
LOC: RAD 07:41
PROVIDERS: PCP Nurse Practitioner; Visit Provider Nurse Practitioner Family
DX: N28.9 Disorder of kidney and ureter, unspecified (principal)
CPT/HCPCS: 74183; A9576

== ENCOUNTER 2024-12-31 00:04 | Emergency (ER) | payer MEDICARE, SELFPAY ==
--- NOTE | 2024-12-31 00:05 | HMH.EDGENADL ---
Discharge Plan Disposition Patient Disposition: Home, Self-Care Prescriptions Prescriptions: New azithromycin 250 mg tablet See Rx Instructions .ROUTE .COMPLEX Qty: 6 0RF Rx Instructions: For 250 mg dose pack: take 500 mg today (day 1), then 250 mg for 4 days (days 2-5) prednisone 50 mg tablet 50 mg PO DAILY 4 Days Qty: 4 0RF No Action Stiolto Respimat 2.5-2.5 mcg/actuation mist 2 puff INHALATION DAILY levothyroxine 50 mcg tablet 50 mcg PO DAILYDM sertraline 25 mg tablet 25 mg PO DAILY metoprolol succinate 25 mg tablet extended release 24 hr 25 mg PO DAILY Qty: 90 3RF isosorbide mononitrate 30 mg tablet extended release 24 hr 30 mg PO DAILY Qty: 30 2RF ranolazine 500 mg tablet extended release 12 hr 500 mg PO BID Qty: 60 2RF ipratropium-albuterol 0.5 mg-3 mg(2.5 mg base)/3 mL solution for nebulization 3 ml INHALATION Q6HP PRN (Reason: Shortness Of Breath Or Wheezing) atorvastatin 40 mg Tablet 40 mg PO HS 30 Days Qty: 30 0RF aspirin 81 mg Tablet,Delayed Release (Dr/Ec) 81 mg PO DAILY 30 Days Qty: 30 0RF clopidogrel [Plavix] 75 mg tablet 75 mg PO DAILY Qty: 30 0RF buspirone 10 mg capsule 10 mg PO BID Qty: 60 0RF Referrals Follow up/Referrals: Provider,Referral, MD [Primary Care Provider, Medical] - See instructions Activity Restrictions/Add. Instructions Additional Instructions/Restrictions: Please take steroids and antibiotics as prescribed for treatment of COPD exacerbation. Please follow-up with your primary care provider. Please return to the emergency department if you develop any new or worsening symptoms or become concerned for your health. Clinical Impressions Clinical Impression: COPD exacerbation Print Language Print Language: Syriac Discharge ED Provider: Cheikh Chairez Adult HPI General Chief complaint: Chest Pain Stated complaint: Chest Pain Time Seen by Provider: 12/31/24 00:05 History of Present Illness HPI narrative: 64-year-old female with history of COPD, recent [place] medically managed, heart failure presents for shortness of breath. Patient satting in the mid 70s on arrival with mild respiratory distress. Patient reports that it started not long prior to arrival. Reports that she feels chest tightness and short of breath. She had something similar happen last week. They recently started her on ranolazine and anxiety medications. Related Data Home Medications ?Medication ?Instructions ?Recorded ?Confirmed tiotropium 2.5 mcg-olodaterol 2.5 2 puff inhalation DAILY 10/11/20 12/26/24 mcg/actuation mist for inhalation (Stiolto Respimat) levothyroxine 50 mcg tablet 50 mcg PO DAILYDM 09/22/23 12/26/24 sertraline 25 mg tablet 25 mg PO DAILY 09/22/23 12/26/24 ipratropium 0.5 mg-albuterol 3 mg 3 ml inhalation Q6HP PRN Shortness 12/03/24 12/26/24 (2.5 mg base)/3 mL nebulization Of Breath Or Wheezing soln Previous Rx's ?Medication ?Instructions ?Recorded aspirin 81 mg tablet,delayed 81 mg PO DAILY 30 days #30 tabs 12/04/24 release atorvastatin 40 mg tablet 40 mg PO HS 30 days #30 tabs 12/04/24 buspirone 10 mg capsule 10 mg PO BID #60 caps 12/04/24 clopidogrel 75 mg tablet (Plavix) 75 mg PO DAILY #30 tabs 12/04/24 metoprolol succinate 25 mg 25 mg PO DAILY #90 tabs 12/07/24 tablet,extended release 24 hr isosorbide mononitrate 30 mg 30 mg PO DAILY #30 tabs 12/26/24 tablet,extended release 24 hr ranolazine 500 mg tablet,extended 500 mg PO BID #60 tabs 12/29/24 release,12 hr azithromycin 250 mg tablet See Rx Instructions PO .COMPLEX #6 12/31/24 tabs prednisone 50 mg tablet 50 mg PO DAILY 4 days #4 tabs 12/31/24 Allergies Allergy/AdvReac Type Severity Reaction Status Date / Time Corticosteroids AdvReac Intermediate MAKES Verified 12/26/24 09:16 (Glucocorticoids) PATIENT RED AND FEEL HOT. [facility] Disclaimer: The information contained in this section may have been updated after the patient was seen, as this information can be updated by other users. Medical History (Updated 12/31/24 @ 02:36 by Cheikh Chairez MD) Angina pectoris Acute respiratory failure with hypoxia and hypercarbia HFrEF (heart failure with reduced ejection fraction) Fatigue Hyperlipidemia Renal lesion CAD (coronary artery disease) Multiple lung nodules on CT GERD (gastroesophageal reflux disease) Hypothyroidism COPD (chronic obstructive pulmonary disease) Lump on neck Surgical History History of cardiac cath History of thyroid surgery Hx of section Family History Sister Cancer Brother Cancer Heart disease Mother Heart disease Diabetes Social History Smoking Status: Never smoker alcohol intake: never current occupational status: other Travel in the last 8 weeks?: None Have you lived/traveled outside US in past 30 days?: No Contact w/someone who lives/traveled outside US past 30 days?: No Exposure to someone with infectious disease in past 14 days?: No Do you have a fever (greater than 100.4 F or 38 C)?: No Have you tested positive for COVID-19?: No Exposed to someone with COVID-19 in past 14 days?: No Do you have a sore throat?: No Do you have a cough?: No Do you have any weakness?: No Do you have any diarrhea?: No Are you experiencing any unusual bleeding?: No Do you have any muscle aches/pain?: No Do you have any abdominal pain?: No Are you experiencing loss of taste or smell?: No Other Medical History Have you received the Flu Vaccine for this season: No Have you received the Pneumonia Vaccine: Yes ROS Obtained: Yes All systems reviewed & no additional complaints except as documented Physical Exam General General appearance: alert and in distress Head Head exam: atraumatic and normocephalic Eye Eye exam: Present normal appearance, PERRL and EOMI ENT ENT exam: Present normal oropharynx and normal external ear exam Neck Neck exam: Present normal inspection and full ROM Chest Chest inspection: Present normal inspection and symmetric chest wall rise; Absent tenderness Respiratory Respiratory exam: Present respiratory distress (Mild accessory muscle use, faint wheezing bilaterally, mildly prolonged expiratory phase) Cardiovascular Cardiovascular exam: Present regular rate and normal rhythm Abdominal Exam Abdominal exam: Present soft; Absent distention, tenderness or guarding Extremities Exam Extremities exam: Present normal inspection; Absent edema or joint swelling Back Exam Back exam: Present normal inspection; Absent tenderness Neurological Exam Neurological exam: Present alert and oriented X3; Absent motor sensory deficit Psychiatric Psychiatric exam: Present normal affect and normal mood Skin Skin exam: Present warm, dry and normal color Lymphatic Lymphatic Findings: no adenopathy Medical Decision Making Medical Records Medical records reviewed: Yes I reviewed the patient's medical records. Screening: Per USPSTF and CDC recommendations, given the prevalence of disease in our region, it is our hospital?s policy to screen for HIV and viral Hepatitis for all patients aged 18 and over and those with ongoing risk factors. Giovanni Inquiry Pt receiving controlled substance: No Giovanni was queried for this patient: No Vital Signs: 12/31/24 00:10 12/31/24 00:31 12/31/24 01:00 Temperature 98.9 F Temperature Source Oral Pulse Rate 82 80 Pulse Rate [Radial] 102 H Respiratory Rate 26 H 14 11 L Blood Pressure 123/45 L 119/69 Blood Pressure [Right Arm] 179/89 H Blood Pressure Mean [Right Arm] 119 Blood Pressure Source Blood Pressure Position Blood Pressure Position [Right Arm] Sitting 02 Sat by Pulse Oximetry 78 L 96 96 Oxygen Delivery Method Room Air 12/31/24 02:38 Temperature 98 F Temperature Source Tympanic Pulse Rate 69 Pulse Rate [Radial] Respiratory Rate 18 Blood Pressure 113/63 Blood Pressure [Right Arm] Blood Pressure Mean [Right Arm] Blood Pressure Source Automatic Cuff Blood Pressure Position Supine Blood Pressure Position [Right Arm] 02 Sat by Pulse Oximetry Oxygen Delivery Method Room Air Lab Data Lab results reviewed: Yes I reviewed the patient's lab results. Lab Results 12/31/24 00:10: WBC 6.8, RBC 4.81, Hgb 14.1, Hct 42.7, MCV 88.8, MCH 29.3, MCHC 33.0, RDW 13.3, Plt Count 239, MPV 10.3, Neut % (Auto) 53.8, Lymph % (Auto) 24.1, [place] % (Auto) 7.2, Eos % (Auto) 13.6 H, Baso % (Auto) 1.0, Neut # (Auto) 3.7, Lymph # (Auto) 1.7, [place] # (Auto) 0.5, Eos # (Auto) 0.9 H, Baso # (Auto) 0.1, D-Dimer 0.46, Sodium 139, Potassium 4.1, Chloride 106, Carbon Dioxide 30, Anion Gap 7.1, BUN 11, Creatinine 0.90, Estimated Creat Clear 46, Estimated GFR 63, Est GFR ( Amer) 76, Glucose 100, Calcium 9.2, Total Bilirubin 0.5, AST 31, ALT 21, Alkaline Phosphatase 103, Troponin I < 0.01, NT-Pro-B Natriuret Pep 153 H, Total Protein 6.8, Albumin 4.4, Globulin 2.4, Albumin/Globulin Ratio 1.8, Lipase 22 L 12/31/24 00:12: VBG pH 7.30 L, VBG pCO2 56.9 H, VBG pO2 37.6, VBG HCO3 27.2, VBG Total CO2 29.0 H, VBG O2 Saturation 66.3, VBG Base Excess 0.8, VBG Lactic Acid 1.1 12/31/24 01:23: SARS-CoV-2 (PCR) Not detected, Influenza A Untype (PCR) Not detected, Influenza Type B (PCR) Not detected 12/31/24 00:10 12/31/24 00:10 Orders (Tests/Meds): ED MEDICATIONS Discontinued Medications Generic Name Dose Route Start Last Admin Trade Name Ankurq PRN Reason Stop Dose Admin Acetaminophen 1,000 mg 12/31/24 00:10 12/31/24 00:23 Acetaminophen 500mg Tab PO 12/31/24 00:11 1,000 mg ONCE ONE Administration Albuterol/Ipratropium 6 ml 12/31/24 00:10 12/31/24 00:36 Ipratropium/Albuterol 3 Ml Neb IH 12/31/24 00:11 6 ml ONCE ONE Administration Aspirin 324 mg 12/31/24 00:10 12/31/24 00:23 Aspirin 81mg Chewable Tablet PO 12/31/24 00:11 324 mg ONCE ONE Administration Magnesium Sulfate 2 gm in 50 mls @ 150 mls/hr 12/31/24 00:32 12/31/24 01:19 Magnesium Sulfate 2gm/50ml Premix IV 12/31/24 00:51 Infused ONCE ONE Infusion Methylprednisolone Sodium Succinate 125 mg 12/31/24 00:32 12/31/24 00:39 Methylprednisolone Sod Succ 125mg Vial IV 12/31/24 00:33 125 mg ONCE ONE Administration Nitroglycerin 0.4 mg 12/31/24 00:10 Nitroglycerin 0.4mg Sl Tablet SL 01/30/25 00:09 Q5MINP PRN Chest Pain ORDERS Category Date Time Status CXR --portable [XR chest portable] Stat Exams 12/31/24 00:11 Completed BNP [NT Pro Brain Natriuretic Pep.] Stat Lab 12/31/24 00:10 Completed CBC w/Auto Diff [Complete Blood Count Auto Diff] Stat Lab 12/31/24 00:10 Completed CMP [Comprehensive Metabolic Panel] Stat Lab 12/31/24 00:10 Completed D-Dimer Stat Lab 12/31/24 00:10 Completed Lipase Stat Lab 12/31/24 00:10 Completed Rapid PCR Covid and Flu A/B Stat Lab 12/31/24 01:23 Completed Troponin I Q3H Lab 12/31/24 00:10 Completed VBG [Venous Blood Gas] Stat RT 12/31/24 00:12 Completed HEART Score History (anamnesis): Slightly suspicious ECG: Non-specific disturbance Age: >65 years Risk factors: Atherosclerosis history Troponin: </= normal limit HEART Score: 5 Medical Decision Narrative: 64-year-old female with history of recent NSTEMI, COPD, heart failure presents for shortness of breath.. History was obtained via interactive discussion with patient, family, chart review. On arrival, patient is afebrile, hypertensive, satting mid 70s on room air, moving all extremities spontaneously. Full physical exam performed and significant for mild respiratory distress with wheezing bilaterally and prolonged expiratory phase, no lower extremity edema. Patient improved to mid 90s on 2 L nasal cannula. Differential includes but is not limited to COPD exacerbation, scape, heart failure exacerbation, ACS, PE, pneumonia. Patient was given DuoNeb x 2, 2 g of mag, aspirin, nitro, IV Solu-Medrol for symptomatic management and correction of underlying abnormalities. Workup initiated including CBC CMP troponin D-dimer VBG chest x-ray COVID flu swab. On re-evaluation, patient reports significant symptomatic improvement. Now satting mid 90s off oxygen. Moving more air on repeat auscultation. Laboratory workup independently interpreted by me and significant for negative D-dimer, no significant leukocytosis, VBG consistent with respiratory acidosis, pCO2 mildly elevated. Negative initial troponin, BNP not significantly elevated, normal renal function. Imaging independently interpreted by me and significant for clear lungs bilaterally without focal opacity. See radiology read for full review of final results. EKG independently interpreted by me and significant for sinus rhythm, biphasic T wave in the inferior leads, no significant ST elevation, no evidence of arrhythmia. 0008. On further reassessment, patient is breathing comfortably, satting properly on room air. Second troponin was considered, but deemed unnecessary due to presentation consistent with COPD exacerbation.. Given patient history, exam and workup, patient's presentation most likely represents COPD exacerbation. She was discharged in stable condition with return precautions and prescription for steroids and azithromycin. Procedures Risk/Benefits of Procedure(s) Were Explained: Yes Critical Care Critical Care Time Critical Care Time: Yes Attestation: On 12/31/24, the high probability of a clinically significant, sudden or life threatening deterioration of the following system(s) respiratory required my full and direct attention, intervention and personal management. The time I documented below is in addition to time spent performing reported procedures but includes the following listed in this critical care notation. Total Time Total Critical Care Time: 40
--- NOTE | 2024-12-31 00:08 | ECG_ITS ---
APPROVED REPORT Exam: Resting ECG HR:98 bpm ECG Measurements Heart Rate 98 AXES KS 160 P 92 QRSd 80 QRS 86 QT 310 T 44 QTc 365 Conclusion SINUS RHYTHM NONSPECIFIC T-WAVE ABNORMALITY BORDERLINE ECG UNCONFIRMED REPORT Electronically signed by : AILYN STEVENSON, 01/01/2025 05:06:30
[2024-12-31 00:10] VITALS: BP 179/89; PULSE 102; RESP 26; TEMP 37.2; O2SAT 78; BMI 21.7
--- NOTE | 2024-12-31 00:11 | XR_ITS ---
PROCEDURE INFORMATION: Exam: XR Chest Exam date and time: 12/31/2024 12:59 AM Age: 64 years old Clinical indication: Shortness of breath; Additional info: SOA TECHNIQUE: Imaging protocol: Radiologic exam of the chest. Views: 1 view. COMPARISON: CR XR CHEST PORTABLE 12/26/2024 4:36 AM FINDINGS: Lungs: COPD changes. Pleural spaces: Unremarkable. No pleural effusion. No pneumothorax. Heart/Mediastinum: Unremarkable. No cardiomegaly. Bones/joints: Unremarkable. IMPRESSION: No acute findings.
--- OUTSIDE RECORDS SUMMARY | 2024-12-31 00:13 | XMS_ITS | Clinical Summary ---
Author Organization [facility] Address [address] [place] [address] Phone Care Team Providers Care Medical Associate Name Role Phone Vance GUTIERREZ, Lewis Amezquita [phone] Conditions or Problems Problem Name Problem Code Onset Date Status Entry Date Provider Comment Standard Description Annotate C. 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 DIFICID 200 MG TABS Take one (1) tablet by mouth twice a day for 10 days 06/19 FIDAXOMICIN [id number] Lewis Woodard MD. VANCOCIN HCL 125 MG ORAL CAPSULE taper 05/23 VANCOMYCIN HCL 61461270141 Stef Harry VANCOCIN HCL 125 MG ORAL CAPSULE taper 05/23 VANCOMYCIN HCL [id number] Lewis Woodard MD. STIOLTO RESPIMAT 2.5-2.5 MCG/ACT AERS Inhale 1-2 puffs as needed 05/23 TIOTROPIUM BROMIDE-OLODATEROL [id number] Lewis Woodard MD. ACIDOPHILUS PROBIOTIC 10 MG CAPS Take 1 tablet by mouth daily 05/23 LACTOBACILLUS [id number] Lewis Woodard MD. ESTRADIOL 1 MG TABS Take 1 tablet by mouth daily 05/23 ESTRADIOL [id number] Lewis Woodard MD. LEVO-T 75 MCG TABS Take 1 tablet by mouth daily 05/23 LEVOTHYROXINE SODIUM [id number] Lewis Woodard MD. MEDROXYPROGESTERONE ACETATE 2.5 MG TABS Take 1 tablet by mouth daily 05/23 MEDROXYPROGESTERONE ACETATE [id number] Lewis Woodard MD. Medications Administered No information available. Allergies, Adverse Reactions, Alerts No information available. Results Date Name Value Unit Range Flag Description Office Visit: Room 12 MEDS REVIEW Done Documenta tion of current medications (procedure) ORALTOBACUSE Never Tobacco smoking status SMOK STATUS Never smoker Toba regional account director smoking status Plan of Care No information [...]
[2024-12-31 00:17] LABS: Lactate Venous 1.1 mmol/L (0.4-2.0); VBG HCO3 27.2 mmol/L (23-30); VBG PH 7.30 mmol/L (7.31-7.41); VBG PO2 37.6 mmol/L (28-40)
[2024-12-31 00:18] LABS: VBG PCO2 56.9 mmol/L (35-51)
[2024-12-31] MEDS: ACETAMINOPHEN 500MG TAB 1000 MG PO (00:23)
[2024-12-31] MEDS: ASPIRIN 81MG CHEWABLE TABLET 324 MG PO (00:23)
[2024-12-31 00:25] LABS: Albumin Level 4.4 g/dl (3.5-5.0); Chloride 106 mmol/L (98-107); Potassium 4.1 mmoL/L (3.5-5.1); Sodium 139 mmol/L (136-145)
[2024-12-31 00:27] LABS: Hematocrit 42.7 % (37.0-47.0); Hemoglobin 14.1 g/dL (12.2-16.2); Immature Granulocytes % 0.3 %; Mean Corpuscular HGB Conc 33.0 g/dL (31.8-35.4); Mean Corpuscular Hemoglobin 29.3 pg (27.0-31.2); Mean Corpuscular Volume 88.8 fl (81-99); Nucleated Red Blood Cells % 0 %; Platelet Count 239 K/mm3 (142-424); Red Blood Count 4.81 M/mm3 (4.20-5.40); Red Cell Distribution Width-SD 43.5 fL; White Blood Count 6.8 K/mm3 (4.8-10.8)
[2024-12-31 00:28] LABS: Alanine Aminotransferase 21 U/L (12-78); Albumin/Globulin Ratio 1.8 (1.1-1.8); Alkaline Phosphatase 103 U/L (38-126); Anion Gap 7.1 mEq/L (5-15); Aspartate Amino Transferase 31 U/L (14-36); Bilirubin,Total 0.5 mg/dl (0.2-1.3); Blood Urea Nitrogen 11 mg/dl (7-17); Calcium 9.2 mg/dl (8.4-10.2); Carbon Dioxide 30 mmol/L (22.0-30.0); Creatinine Clearance Estimated 46 mL/min (50-200); Creatinine,Serum 0.90 mg/dl (0.52-1.04); Estimated Glomerular Filt Rate 63 ml/min (>60); GFR (African American) 76 ML/MIN (>60); Globulin 2.4 g/dL (1.3-3.2); Glucose 100 mg/dl (74-100); Lipase 22 U/L (23-300); Total Protein,Serum 6.8 g/dl (6.3-8.2)
[2024-12-31 00:31] VITALS: BP 123/45; PULSE 82; RESP 14; O2SAT 96
[2024-12-31 00:34] LABS: D-Dimer 0.46 ug/mL (0.0-0.5)
[2024-12-31] MEDS: IPRATROPIUM/ALBUTEROL 3 ML NEB 6 ML IH (00:36)
[2024-12-31 00:38] LABS: NT Pro Brain Natriuretic Pep. 153 pg/mL (0-125)
[2024-12-31] MEDS: MAGNESIUM SULFATE IN WATER 2 GM/50 ML PIGGYBACK IV (00:39)
[2024-12-31] MEDS: METHYLPREDNISOLONE SOD SUCC 125MG VIAL 125 MG IV (00:39)
[2024-12-31 00:42] LABS: Troponin I < 0.01 ng/ml (0.00-0.034)
[2024-12-31 01:00] VITALS: BP 119/69; PULSE 80; RESP 11; O2SAT 96
[2024-12-31 01:27] LABS: Coronavirus 19, PCR Not Detected (NotDetected); Influenza A, PCR Not Detected (NotDetected); Influenza B, PCR Not Detected (NotDetected)
[2024-12-31 02:38] VITALS: BP 113/63; PULSE 69; RESP 18; TEMP 36.6; O2SAT 99
== END 2024-12-31 02:44 | disposition home or self-care (01) ==
PROVIDERS: Emergency Provider Emergency Medicine
DX: J44.1 Chronic obstructive pulmonary disease with (acute) exacerbation (principal); R09.02 Hypoxemia; R07.9 Chest pain, unspecified; I11.0 Hypertensive heart disease with heart failure; I50.20 Unspecified systolic (congestive) heart failure; I25.119 Atherosclerotic heart disease of native coronary artery with unspecified angina pectoris; E78.5 Hyperlipidemia, unspecified; Z87.891 Personal history of nicotine dependence
CPT/HCPCS: 71045; 80053; 82803; 83690; 83880; 84484; 85025; 85378; 87636; 93005; 96365; 96375; 99285; J2919; J3475

== ENCOUNTER 2025-01-03 14:24 | Outpatient (CLI) | payer MEDICARE, SELFPAY ==
--- OUTSIDE RECORDS SUMMARY | 2025-01-03 14:41 | XMS_ITS | Clinical Summary ---
Author Organization [facility] Address [address] [place] [address] Phone Care Team Providers Care Engine Dynamometer Tester Name Role Phone Vance GUTIERREZ, Lewis Amezquita [phone] Conditions or Problems Problem Name Problem Code Onset Date Status Entry Date Provider Comment Standard Description Annotate C. Difficile colitis, recurrent 95412140 (SNOMED CT) Active Cony Ceferino Enterocolitis Medications Medication Instructions Start Date Stop Date Generic Name NDC Provider DIFICID 200 MG TABS Take one (1) tablet by mouth twice a day for 10 days 06/19 FIDAXOMICIN [id number] Tierra Marquez VANCOCIN HCL 125 MG ORAL CAPSULE Take one (1) tablet by mouth four times a day for 14 days 06/19 VANCOMYCIN HCL [id number] Lewis Woodard MD. DIFICID 200 MG TABS Take one (1) tablet by mouth twice a day for 10 days 06/19 FIDAXOMICIN 06471254192 Lewis Woodard MD. VANCOCIN HCL 125 MG ORAL CAPSULE taper 05/23 VANCOMYCIN HCL 21362819349 Stef Harry VANCOCIN HCL 125 MG ORAL CAPSULE taper 05/23 VANCOMYCIN HCL 93102756130 Lewis Woodard MD. STIOLTO RESPIMAT 2.5-2.5 MCG/ACT AERS Inhale 1-2 puffs as needed 05/23 TIOTROPIUM BROMIDE-OLODATEROL 88496319717 Lewis Woodard MD. ACIDOPHILUS PROBIOTIC 10 MG CAPS Take 1 tablet by mouth daily 05/23 LACTOBACILLUS [id number] Lewis Woodard MD. ESTRADIOL 1 MG TABS Take 1 tablet by mouth daily 05/23 ESTRADIOL [id number] Lewis Woodard MD. LEVO-T 75 MCG TABS Take 1 tablet by mouth daily 05/23 LEVOTHYROXINE SODIUM 90578561084 Lewis Woodard MD. MEDROXYPROGESTERONE ACETATE 2.5 MG TABS Take 1 tablet by mouth daily 05/23 MEDROXYPROGESTERONE ACETATE [id number] Lewis Woodard MD. Medications Administered No information available. Allergies, Adverse Reactions, Alerts No information available. Results Date Name Value Unit Range Flag Description Office Visit: Room 12 MEDS REVIEW Done Documenta tion of current medications (procedure) ORALTOBACUSE Never Tobacco smoking status SMOK STATUS Never smoker Toba accounting analyst smoking status Plan of Care No information [...]
== END 2025-01-03 23:59 | disposition home or self-care (01) ==
LOC: LAB 14:25
PROVIDERS: PCP Nurse Practitioner; Visit Provider Internal Medicine Pulmonary Disease
DX: J43.9 Emphysema, unspecified (principal)
CPT/HCPCS: 36415; 82103; 82104

== ENCOUNTER 2025-01-25 13:45 | Outpatient (RCR) | payer MEDICARE, SELFPAY | END 2025-02-01 08:00 | disposition home or self-care (01) | LOC: CR 13:45 | PROVIDERS: Visit Provider Internal Medicine | DX: I25.10 Atherosclerotic heart disease of native coronary artery without angina pectoris (principal); I21.4 Non-ST elevation (NSTEMI) myocardial infarction | CPT/HCPCS: 93798 ==

== ENCOUNTER 2025-03-02 14:36 | Outpatient (CLI) | payer MEDICARE, SELFPAY ==
--- OUTSIDE RECORDS SUMMARY | 2025-03-02 14:37 | XMS_ITS | Clinical Summary ---
Author Organization [facility] Address [address] [place] [address] Phone Care Team Providers Care Glass Designer Name Role Phone Vance MORLEY, Lewis Amezquita [phone] Conditions or Problems Problem Name Problem Code Onset Date Status Entry Date Provider Comment Standard Description Annotate C. Difficile colitis, recurrent [id number] (SNOMED CT) Active Cony Ceferino Enterocolitis Medications Medication Instructions Start Date Stop Date Generic Name NDC Provider DIFICID 200 MG TABS Take one (1) tablet by mouth twice a day for 10 days 06/19 FIDAXOMICIN [id number] Tierra Marquez VANCOCIN HCL 125 MG ORAL CAPSULE Take one (1) tablet by mouth four times a day for 14 days 06/19 VANCOMYCIN HCL 52588205053 Lewis Woodard MD DIFICID 200 MG TABS Take one (1) tablet by mouth twice a day for 10 days 06/19 FIDAXOMICIN 97447116612 Lewis Woodard MD VANCOCIN HCL 125 MG ORAL CAPSULE taper 05/23 VANCOMYCIN HCL 87933087734 Stef Harry VANCOCIN HCL 125 MG ORAL CAPSULE taper 05/23 VANCOMYCIN HCL 78626499655 Lewis Woodard MD STIOLTO RESPIMAT 2.5-2.5 MCG/ACT AERS Inhale 1-2 puffs as needed 05/23 TIOTROPIUM BROMIDE-OLODATEROL 49954922425 Lewis Woodard MD ACIDOPHILUS PROBIOTIC 10 MG CAPS Take 1 tablet by mouth daily 05/23 LACTOBACILLUS [id number] Lewis Woodard MD ESTRADIOL 1 MG TABS Take 1 tablet by mouth daily 05/23 ESTRADIOL [id number] Lewis Woodard MD LEVO-T 75 MCG TABS Take 1 tablet by mouth daily 05/23 LEVOTHYROXINE SODIUM 88188671711 Lewis Woodard MD MEDROXYPROGESTERONE ACETATE 2.5 MG TABS Take 1 tablet by mouth daily 05/23 MEDROXYPROGESTERONE ACETATE [id number] Lewis Woodard MD Medications Administered No information available. Allergies, Adverse Reactions, Alerts No information available. Results Date Name Value Unit Range Flag Description Office Visit: Room 12 MEDS REVIEW Done Documenta tion of current medications (procedure) ORALTOBACUSE Never Tobacco smoking status SMOK STATUS Never smoker Toba construction accountant smoking status Plan of Care No information [...]
[2025-03-02] MEDS: ALBUTEROL 0.083% 2.5 MG/3 ML NEB IH (15:45)
--- NOTE | 2025-03-02 15:46 | PC.NURSE ---
PFT and 6 Minutes Walk Test completed without incident. Albuterol 0.083% given via HHN, per written protocol, pt tolerated tx well.
== END 2025-03-02 23:59 | disposition home or self-care (01) ==
LOC: RT 14:36
PROVIDERS: PCP Nurse Practitioner; Visit Provider Internal Medicine Pulmonary Disease
DX: J44.9 Chronic obstructive pulmonary disease, unspecified (principal); R94.2 Abnormal results of pulmonary function studies
CPT/HCPCS: 94010; 94618; 94727; 94729